=== PATIENT | male | born 1955 | race Caucasian/White ===

== ENCOUNTER 2022-04-28 13:19 | Outpatient (REF) | payer MEDICARE, OTHER, SELFPAY ==
--- NOTE | ~2022-04-28 | US_ITS ---
EXAMINATION: US RETROPERITONEAL LIMITED (AORTA) CLINICAL INFORMATION: Nicotine dependence, unspecified, uncomplicated. COMPARISON: None TECHNIQUE: Valentine-scale, color Doppler and spectral Doppler evaluation of the abdominal aorta. FINDINGS: The measurements of the aorta in maximum AP and transverse dimensions respectively are as follows: Proximal: 2.9 x 3.2 cm. Mid: 2.0 x 2.3 cm. Distal: 2.1 x 2.0 cm. PSV: 84 cm/s. The measurements of the common iliac arteries in maximum AP and TRV dimensions are as follows: Right Common Iliac Artery: 1.1 x 1.2 cm. Left Common Iliac Artery: 1.2 x 1.1 cm. US/US abdominal aortic aneurysm IMPRESSION: Calcified plaque present within the infrarenal abdominal aorta and iliac vessels. There is mild dilatation of the proximal abdominal aorta. No significant aneurysm appreciated.
== END 2022-04-28 13:20 | disposition home or self-care (01) ==
LOC: HO.US 13:19
PROVIDERS: Visit Provider Internal Medicine
DX: Z13.6 Encounter for screening for cardiovascular disorders (principal); F17.200 Nicotine dependence, unspecified, uncomplicated
CPT/HCPCS: 76706

== ENCOUNTER 2022-11-13 14:17 | Outpatient (REF) | payer MEDICARE, OTHER, SELFPAY ==
[2022-11-13 19:57] LABS: Alanine Aminotransferase 13 U/L (0-40); Albumin Level 4.1 g/dL (3.5-5.0); Alkaline Phosphatase 68 U/L (39-117); Anion Gap 14 (12-20); Aspartate Amino Transferase 14 U/L (5-37); Bilirubin Total 0.5 mg/dL (0.0-1.0); Blood Urea Nitrogen 9 mg/dL (9-16); Calcium 10.2 mg/dL (8.4-10.2); Carbon Dioxide 25 mmol/L (22-29); Chloride 104 mmol/L (96-108); Cholesterol 97 mg/dL; Estimated Glomerular Filt Rate > 60; Glucose Fasting 86 mg/dL (60-99); HDL Cholesterol 30 mg/dL; LDL Cholesterol Calculated 43 mg/dl; Potassium 3.9 mmol/L (3.3-5.1); Sodium 139 mmol/L (135-145); Triglycerides 122 mg/dL
[2022-11-13 19:59] LABS: Creatinine Urine 106.62 mg/dL; Microalbum/Creatinine Ratio Ur 353.5 ug/mg cr
== END 2022-11-13 14:18 | disposition home or self-care (01) ==
LOC: HO.LAB 14:17
PROVIDERS: PCP Internal Medicine; Visit Provider Internal Medicine
DX: E11.9 Type 2 diabetes mellitus without complications (principal); E78.5 Hyperlipidemia, unspecified
CPT/HCPCS: 36415; 80053; 80061; 82043

== ENCOUNTER 2023-03-15 13:30 | Outpatient (REF) | payer MEDICARE, OTHER, SELFPAY ==
[2023-03-15 14:31] LABS: Alanine Aminotransferase 17 U/L (0-40); Albumin Level 4.4 g/dL (3.5-5.0); Alkaline Phosphatase 91 U/L (39-117); Anion Gap 13 (12-20); Aspartate Amino Transferase 19 U/L (5-37); Bilirubin Total 0.4 mg/dL (0.0-1.0); Blood Urea Nitrogen 13 mg/dL (9-16); Calcium 10.3 mg/dL (8.4-10.2); Carbon Dioxide 26 mmol/L (22-29); Chloride 104 mmol/L (96-108); Cholesterol 128 mg/dL (<200); Estimated Glomerular Filt Rate > 60; Glucose Fasting 104 mg/dL (60-99); HDL Cholesterol 31 mg/dL (>40); LDL Cholesterol Calculated 65 mg/dL (<100); Potassium 4.7 mmol/L (3.3-5.1); Sodium 138 mmol/L (135-145); Total Protein 7.6 g/dL (6.5-8.0); Triglycerides 164 mg/dL (<150)
[2023-03-15 14:51] LABS: Creatinine Urine 90.41 mg/dL; Microalbum/Creatinine Ratio Ur 257.7 ug/mg cr (<30)
== END 2023-03-15 13:31 | disposition home or self-care (01) ==
LOC: HO.LAB 13:30
PROVIDERS: PCP Internal Medicine; Visit Provider Internal Medicine
DX: E11.9 Type 2 diabetes mellitus without complications (principal); E78.5 Hyperlipidemia, unspecified
CPT/HCPCS: 36415; 80053; 80061; 82043; 82570

== ENCOUNTER 2023-07-12 13:54 | Outpatient (AMB) | payer MEDICARE, OTHER, SELFPAY ==
[2023-07-12 13:58] VITALS: BP 136/72; BMI 31.9
--- NOTE | 2023-07-12 13:58 | A.OFFPC_ITS ---
Vital Signs 07/12/23 13:58 Height 5 ft 8 in Weight 210 lb BMI 31.9 BP 136/72 Blood Pressure Location Lt brachial Position Sitting Intake Visit Reasons: dm Intake Note: Patient here for a follow up DM Sys Dir Required: No Accompanied by: Self / Same As Patient Allergies No Known Allergies Allergy (Verified 07/12/23 14:25) Medication List - Last Reconciled 07/12/23 by Aranza Saxena MD atenolol 50 mg PO DAILY atorvastatin 80 mg PO DAILY 90 days glyburide 5 mg PO BID 30 days linagliptin (Tradjenta) 5 mg PO DAILY 90 days lisinopril 30 mg PO DAILY metformin 1,000 mg PO BID 90 days paroxetine HCl 20 mg PO DAILY Tobacco use date assessed: 07/12/23 Fall risk assessment: No Falls in past year Last assessed Fall Risk: 07/12/23 Dental Screening Dental Screen Date: 07/12/23 Did you have a dental visit in the last 12 months?: No Did you have a dental problem in the last 6 months where you did not have access to dental care?: No Was dental information given to patient?: Patient declined HPI HPI Comments History of Present Illness Details This is a 68-year-old male with diabetes mellitus type 2, hypertension, hyperlipidemia and mild major depression that comes today for follow-up on his conditions. A1c very close to goal. Blood pressure stable. Lipid panel will be order and his LDL goal should be less than 70. Depression somewhat stable with paroxetine and see psychiatry. Last microalbumin was elevated and this will be repeated. No chest pain or shortness of breath. PFSH Surgical History H/O colonoscopy Family History Mother No problems noted. Father Substance use disorder Alcoholism Social History Housing: House Alcohol intake: former Patient Tobacco Use Status: Current everyday Tobacco user Tobacco use type: Cigarette Cigarettes Per Day: 6 e-Cigarette/Vaping Use: Never Used Second Hand Smoke Exposure: No service: Yes Current occupational status: retired Cognitive needs: No Hearing needs: No Vision needs: Yes Questionnaire PHQ-9 Over the last 2 weeks, how often have you been bothered by any of the following problems? 1. Little interest or pleasure in doing things: not at all 2. Feeling down, depressed, or hopeless: several days 3. Trouble falling or staying asleep, or sleeping too much: nearly every day 4. Feeling tired or having little energy: not at all 5. Poor appetite or overeating: several days 6. Feeling bad about yourself - or that you are a failure or have let yourself or your family down: not at all 7. Trouble concentrating on things, such as reading the newspaper or watching television: nearly every day 8. Moving or speaking so slowly that other people could have noticed. Or the opposite - being so fidgety or restless that you have been moving around a lot more than usual: several days 9. Thoughts that you would be better off or of hurting yourself in some way: not at all Total score: 9 Depression Screening Interpretation: Positive Depression Screening Follow-up: Existing condition Depression Screening Done: Yes 23177 - PHQ-9 Billing: Yes Source: Developed by Drs. Adam Carter, Deb Farris, Cristian Guerrero and colleagues, with an educational aurora from [employer]. Thrive Questionnaire Date Thrive assessed: 07/12/23 I am a: Patient What is your living situation today?: I have a steady place to live Within the past 12 months, did the food you bought not last and you didn't have the money to get more?: Never true Within the past 12 months, did you worry whether your food would run out before you got money to buy more?: Never true Do you have trouble paying for medicines?: No Do you have trouble getting transportation to medical appointments?: No Do you have trouble paying your heating and electricity bill?: No Do you have trouble taking care of your child, family member or friend?: No Do you have trouble with day-to-day activities such as bathing, preparing meals, shopping, managing finances, etc.?: No Are you currently unemployed and looking for a job?: No Are you interested in more education?: No Please select the resources that you would like help with: None Currently or been in a relationship where the following occur: no concerns reported THRIVE Score: 0 AUDIT C Alcohol Use Questionnaire (AUDIT-C) 1. How often do you have a drink containing alcohol?: Never Total Score: 0 TERRELL-7 AMB Questionnaire TERRELL-7 Date TERRELL - 7 assessed: 07/12/23 Feeling nervous, anxious, or on edge: 2 = More than half the days Not being able to stop or control worryin = More than half the days Worrying too much about different things: 3 = Nearly every day Trouble relaxin = Several days Being so restless that it is hard to sit still: 2 = More than half the days Becoming easily annoyed or irritable: 2 = More than half the days Feeling afraid as if something awful might happen: 1 = Several days Total TERRELL-7 score (0-4 normal; 5-9 mild; 10-14 moderate; 15-21 severe): 13 Source: Developed by Drs. Adam Carter, Deb Farris, Cristian Guerrero and colleagues, with an educational aurora from [employer]. TERRELL-7 Assessment Billing TERRELL-7 Assessment Tool: TERRELL-7 Assessment 89084 Review of Systems Const All systems reviewed & are unremarkable except as noted in HPI and below Eyes Reports no additional complaints, Denies change in vision and Denies other visual disturbances Card Denies chest pain at rest, Denies chest pain with activity, Denies edema, Denies irregular heart rhythm, Denies claudication, Denies dyspnea, Denies dyspnea on exertion, Denies orthopnea, Denies paroxysmal nocturnal dyspnea and Denies slow heart rate Resp Denies cough, Denies dyspnea and Denies dyspnea on exertion GI Denies abdominal pain, Denies change in bowel habits, Denies excessive flatus, Denies nausea and Denies vomiting Denies urinary hesitancy, Denies urinary incontinence and Denies urinary urgency Physical exam (Primary Care) Vital Signs: Last Vital Signs BP 136/72 07/12/23 13:58 BMI result Body Mass Index 31.9 Tobacco/Smoking Status: Tobacco use Status Tobacco use date assessed 07/12/23 07/12/23 14:07 Patient Tobacco Use Status Current everyday Tobacco 07/12/23 14:07 Tobacco use type Cigarette 07/12/23 14:07 e-Cigarette/Vaping Use Never Used 07/12/23 14:07 PHQ-9: PHQ-9 Score PHQ-9: Total score 9 07/12/23 14:07 Depression Screening Interpretation: Positive Depression Screening Follow-up: Existing condition Thrive Assessment: Date of Thrive Assessment Date Thrive assessed 07/12/23 07/12/23 14:07 Currently or been in a relationship where the following occur: no concerns reported Eyes General: appearance normal, both eyes and all related structures Eyelids: Yes eyelids normal Conjunctivae: conjunctivae normal Neck Neck: Yes normal visual inspection and Yes supple Resp Effort & Inspection: normal respiratory effort Auscultation: clear to auscultation bilaterally Cardio Jugular venous distension: no JVD Rate: regular rate Rhythm: regular rhythm Heart sounds: S1 normal heart sound present and S2 normal heart sound present Extrem General: Yes full ROM Results AMB Hemoglobin A1c AMB Hemoglobin A1c 7.2 % Last Edit by DANIELA West on 07/12/23 14:0 9 Results Reviewed Results Reviewed: Laboratory Last Values Hgb A1c (Clinic) 7.2 % (4.0-6.0) H 07/12/23 13:57 Assessment and Plan Assessment & Plan (1) Diabetes mellitus: Comment: eye care with Dr. Barnes in 06/25/2021 Code(s): E11.9 - Type 2 diabetes mellitus without complications Plan: Continue metformin, Tradjenta and liver eye. A1c goal is equal or less than 7%. (2) Essential (primary) hypertension: Code(s): I10 - Essential (primary) hypertension Plan: Continue lisinopril. Blood pressure goal is equal or less than 130/80. (3) Hyperlipidemia LDL goal <70: Code(s): E78.5 - Hyperlipidemia, unspecified Plan: Continue statins. LDL goal less than 70. (4) Mild major depression: Code(s): F32.0 - Major depressive disorder, single episode, mild Plan: Continue paroxetine. Follow-up with psychiatry. Orders: Orders Microalbumin, Random (w Creat) Today E11.9 - Type 2 diabetes mellitus without complications Vitamin D 25-OH Total Today E55.9 - Vitamin D deficiency, unspecified Comprehensive [place]. Panel Fast Today E11.9 - Type 2 diabetes mellitus without complications AMB Hemoglobin A1c Today E11.9 - Type 2 diabetes mellitus without complications Lipid Panel Today E78.5 - Hyperlipidemia, unspecified Coding Level of Care Code Est Pt Level 4 (99761) Diagnoses Diabetes mellitus E11.9 Essential (primary) hypertension I10 Hyperlipidemia LDL goal <70 E78.5 Mild major depression F32.0 Additional Codes TERRELL-7 Assessment Billing - TERRELL-7 Assessment Tool: TERRELL-7 Assessment 43516 ([id number]) Time Spent (min) 23
== END 2023-07-12 14:35 | disposition home or self-care (01) ==
PROVIDERS: PCP Internal Medicine; Visit Provider Internal Medicine
DX: E11.69 Type 2 diabetes mellitus with other specified complication (principal); F32.0 Major depressive disorder, single episode, mild; I10 Essential (primary) hypertension; E78.5 Hyperlipidemia, unspecified
CPT/HCPCS: 83036; 99214

== ENCOUNTER 2023-08-25 16:23 | Emergency (ER) | payer OTHER, SELFPAY ==
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
--- NOTE | ~2023-08-25 | CT_ITS ---
EXAMINATION: CT HEAD WITHOUT CONTRAST CT CERVICAL SPINE WITHOUT CONTRAST CLINICAL INFORMATION: Head injury. Neck trauma. COMPARISON: None available. TECHNIQUE: Contiguous axial imaging was performed from the skull base to vertex without intravenous administration of contrast. Contiguous axial imaging was performed from the upper chest through the skull base without intravenous administration of contrast. Coronal and sagittal reformats were obtained at the acquisition workstation. This CT examination was performed using dose optimization techniques as appropriate, variously including the following: *Automated exposure control. *Adjustment of mA and/or kV according to patient size (this includes techniques or standardized protocols for targeted exams where dose is matched to indication/reason for exam; i.e. extremities or head). *Use of iterative reconstruction technique. DLP: 1575 mGy-cm FINDINGS: Head: There is no evidence of acute intracranial hemorrhage or edematous territorial infarction. Valentine-white matter differentiation is preserved. A few foci of hypoattenuation in the periventricular and deep white matter are consistent with mild microangiopathy. The ventricles are normal in morphology and size. No evidence for obstructive hydrocephalus. No abnormal mass effect or midline shift. No extra-axial fluid collections. Calcific atherosclerotic disease of the intracranial internal carotid and vertebral arteries. No hyperdense vessel sign. No acute soft tissue or osseous abnormalities. Mild mucosal thickening of the paranasal sinuses. The mastoid air cells and middle ear cavities are clear. Cervical Spine: The atlantooccipital and atlantoaxial articulations remain well aligned. Straightening of the normal cervical lordosis. Otherwise, there is anatomic alignment of the vertebral bodies and posterior elements. Congenital nonunion of the posterior arch of C1. No evidence of acute fracture or subluxation. The vertebral body heights are maintained. Moderate degenerative disc disease at C3-C4 and C5-C6. Mild degenerative disc disease at all additional levels. Facet and uncovertebral joint arthropathy leads to osseous encroachment on the neural foramina from C3-C7. There is no prevertebral soft tissue swelling. The thyroid gland and remaining cervical soft tissues are within normal limits. The lung apices demonstrate no abnormalities. CT/CT cervical spine wo IV con IMPRESSION: 1. No evidence of acute intracranial hemorrhage or edematous territorial infarction. Mild underlying microangiopathy. 2. No evidence of acute fracture or traumatic subluxation of the cervical spine. Moderate multilevel degenerative spondyloarthropathy of the cervical spine.
[2023-08-25 16:31] VITALS: BP 180/100; PULSE 85; O2SAT 98
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
[2023-08-25 17:37] VITALS: BP 163/76; PULSE 87; RESP 16; TEMP 36.8; O2SAT 97; BMI 35.9
[2023-08-25 18:10] LABS: MANUAL DIFF FLAG NO
[2023-08-25 18:11] LABS: Basophils Absolute Auto 0.1 X10*3/uL (0.0-0.2); Basophils Percent Auto 0.5 % (0-2); Eosinophils Absolute Auto 0.2 X10*3/uL (0.0-0.4); Eosinophils Percent Auto 1.5 % (0-4); Hematocrit 41.5 % (42.0-52.0); Hemoglobin 14.3 g/dl (14.0-18.0); Imm Gran Abs Auto 0.07 X10*3/uL (0.00-0.03); Imm Gran Pct Auto 0.6 % (0.0-0.4); Lymphocytes Absolute Auto 2.4 X10*3/uL (1.2-4.9); Lymphocytes Percent Auto 18.7 % (20-40); Mean Corpuscular HGB Conc 34.5 g/dl (31.0-36.0); Mean Corpuscular Hemoglobin 32.6 pg (27.0-33.0); Mean Corpuscular Volume 94.5 fL (80.0-98.0); Monocytes Absolute Auto 1.1 X10*3/uL (0.1-1.2); Monocytes Percent Auto 8.5 % (2-11); Neutrophils Absolute Auto 8.9 x10*3/uL (2.0-8.3); Neutrophils Percent Auto 70.2 % (45-73); Platelet Count 321 X10*3/uL (160-400); Red Blood Count 4.39 X10*6/uL (4.60-5.80); Red Cell Distribution Width 13.1 % (11.0-16.0); White Blood Count 12.7 X10*3/uL (4.8-10.8)
[2023-08-25] MEDS: ondansetron HCL 4 MG/2 ML VIAL IVPUSH (18:14)
[2023-08-25] MEDS: Morphine Sulfate 4 MG/ML CARTRIDGE IVPUSH (18:14)
--- NOTE | 2023-08-25 18:18 | PC.NURSE ---
this nurse is assisting primary nurse jose alejandro Roque medicated per order
[2023-08-25 18:58] LABS: Alanine Aminotransferase 16 U/L (0-40); Albumin Level 3.6 g/dL (3.5-5.0); Alkaline Phosphatase 68 U/L (39-117); Anion Gap 9 (12-20); Aspartate Amino Transferase 13 U/L (5-37); Bilirubin Direct 0.2 mg/dL (0.0-0.5); Bilirubin Total 0.4 mg/dL (0.0-1.0); Blood Urea Nitrogen 11 mg/dL (9-16); Calcium 9.4 mg/dL (8.4-10.2); Carbon Dioxide 28 mmol/L (22-29); Chloride 108 mmol/L (96-108); Creatinine Clr Calc Pharmacy 143.2; Estimated Glomerular Filt Rate > 60; Glucose Random 114 mg/dL (60-115); Lipase 74 U/L (8-78); Magnesium 1.7 mg/dL (1.6-2.6); Potassium 4.2 mmol/L (3.3-5.1); Sodium 141 mmol/L (135-145); Total Protein 6.3 g/dL (6.5-8.0)
--- NOTE | 2023-08-25 19:36 | PC.NURSE ---
this rn assumed care of pt. pt resting in stretcher, respirations even and unlabored. pt has c-collar in place, awaiting CT scan. pt reports pain has improved with previous dose of pain medication.
[2023-08-25 19:38] VITALS: BP 131/79; PULSE 89; RESP 17; TEMP 36.8; O2SAT 96
[2023-08-25] MEDS: iohexoL 350 MG/ML 100 ML INFUS..BTL 85 ML IV (20:16)
[2023-08-25 22:50] VITALS: BP 101/49; PULSE 84; RESP 16; TEMP 37.1; O2SAT 98
[2023-08-26 00:33] VITALS: BP 101/49; PULSE 84; RESP 16; TEMP 37.1; O2SAT 98
== END 2023-08-26 00:34 | disposition home or self-care (01) ==
PROVIDERS: Emergency Medicine; Emergency Provider Emergency Medicine; PCP Internal Medicine
DX: S09.90XA Unspecified injury of head, initial encounter (principal); M54.2 Cervicalgia; I10 Essential (primary) hypertension; E11.9 Type 2 diabetes mellitus without complications; V89.2XXA Person injured in unspecified motor-vehicle accident, traffic, initial encounter; Y93.9 Activity, unspecified; Y92.410 Unspecified street and highway as the place of occurrence of the external cause; Y99.9 Unspecified external cause status
CPT/HCPCS: 36415; 70450; 71260; 72125; 74177; 80048; 80076; 83690; 83735; 85025; 96374; 96375; 99284; J2270; J2405; Q9967

== ENCOUNTER 2023-11-15 13:34 | Outpatient (AMB) | payer MEDICARE, OTHER, SELFPAY ==
[2023-11-15 13:38] VITALS: BP 130/78; BMI 28.7
--- NOTE | 2023-11-15 13:38 | A.OFFPC_ITS ---
Vital Signs 11/15/23 13:38 Height 6 ft Weight 212 lb BMI 28.7 BP 130/78 Blood Pressure Location Lt brachial Position Sitting Intake Visit Reasons: dm Intake Note: Patient here a follow up DM Nurse Practitioner Home Assessments Required: No Accompanied by: Self / Same As Patient Allergies No Known Allergies Allergy (Verified 11/15/23 13:49) Medication List - Last Reconciled 11/15/23 by Aranza Saxena MD atenolol 50 mg PO DAILY atorvastatin 80 mg PO DAILY 90 days glyburide 5 mg PO BID 30 days linagliptin (Tradjenta) 5 mg PO DAILY 90 days lisinopril 30 mg PO DAILY metformin 1,000 mg PO BID 90 days paroxetine HCl 20 mg PO DAILY Tobacco use date assessed: 07/12/23 Fall risk assessment: No Falls in past year Last assessed Fall Risk: 11/15/23 Dental Screening Dental Screen Date: 07/12/23 HPI HPI Comments History of Present Illness Details This is a 68-year-old male with hypertension, diabetes mellitus type 2, mild major depression and hyperlipidemia that comes today for follow-up on his conditions. Pressure stable. A1c has improved but I will change glyburide to pioglitazone. Depression stable with paroxetine. Lipid panel will be order and his LDL goal should be less than 70. Has microalbuminuria and will be referred to nephrology. Went to ER in August and had CT scan of the chest and CT scan of abdomen and pelvis showing tiny pulmonary nodules, COPD changes, benign left adrenal adenoma and BPH. Denies any bowel or bladder complaint. No chest pain or shortness on breath. I will still refer him to pulmonology for his COPD. He has still a smoker and was advised to quit. As per patient he has intentionally lost weight. [facility] Medical History (Updated 11/15/23 @ 14:09 by Aranza Saxena MD) Mild major depression Hyperlipidemia LDL goal <70 Essential (primary) hypertension Diabetes mellitus Class 1 obesity with body mass index (BMI) of 32.0 to 32.9 in adult Surgical History H/O colonoscopy Family History Mother No problems noted. Father Substance use disorder Alcoholism Social History Housing: House Alcohol intake: former Patient Tobacco Use Status: Current everyday Tobacco user Tobacco use type: Cigarette Cigarettes Per Day: 6 e-Cigarette/Vaping Use: Never Used Second Hand Smoke Exposure: No service: Yes Current occupational status: retired Cognitive needs: No Hearing needs: No Vision needs: Yes Questionnaire Thrive Questionnaire Date Thrive assessed: 07/12/23 TERRELL-7 AMB Questionnaire TERRELL-7 Date TERRELL - 7 assessed: 07/12/23 Source: Developed by Drs. Adam Carter, Deb Farris, Cristian Guerrero and colleagues, with an educational aurora from [employer]. Review of Systems Const All systems reviewed & are unremarkable except as noted in HPI and below Card Denies chest pain at rest, Denies chest pain with activity, Denies edema, Denies irregular heart rhythm, Denies claudication, Denies dyspnea, Denies dyspnea on exertion, Denies orthopnea, Denies paroxysmal nocturnal dyspnea and Denies slow heart rate Resp Denies cough, Denies dyspnea and Denies dyspnea on exertion Physical exam (Primary Care) Vital Signs: Last Vital Signs BP 130/78 11/15/23 13:38 BMI result Body Mass Index 28.7 Tobacco/Smoking Status: Tobacco use Status Tobacco use date assessed 07/12/23 11/15/23 13:43 Patient Tobacco Use Status Current everyday Tobacco 11/15/23 13:43 Tobacco use type Cigarette 11/15/23 13:43 e-Cigarette/Vaping Use Never Used 11/15/23 13:43 Are you ready to quit: No Tobacco cessation counseling provided: Yes Items discussed: [employer] Relapse Prevention: discussed the importance of a supportive environment, discussed negative mood or depression after quitting, weight gain after smoking is common and discussed dietary, exercise and/or lifestyle changes Number of minutes spent counselin CPT code: 60896 - 4-10 Minutes Thrive Assessment: Date of Thrive Assessment Date Thrive assessed 07/12/23 11/15/23 13:43 Resp Effort & Inspection: normal respiratory effort Auscultation: clear to auscultation bilaterally Cardio Jugular venous distension: no JVD Rate: regular rate Rhythm: regular rhythm Heart sounds: S1 normal heart sound present and S2 normal heart sound present Neuro General: no focal motor deficits Extrem General: Yes full ROM Psych Appearance: grossly normal Results AMB Hemoglobin A1c AMB Hemoglobin A1c 7.1 % Last Edit by DANIELA West on 11/15/23 13:4 9 Assessment and Plan Assessment & Plan (1) Diabetes mellitus: Comment: eye care with Dr. Barnes in 06/25/2021 Code(s): E11.9 - Type 2 diabetes mellitus without complications Qualifiers: Diabetes mellitus type: type 2 Diabetes mellitus commercial lending assistant insulin use: without commercial lending assistant use Diabetes mellitus complication status: with hyperglycemia Qualified Code(s): E11.65 - Type 2 diabetes mellitus with hyperglycemia Plan: Continue metformin. Continue Tradjenta. Discontinue glyburide. Start Actos. A1c goal is equal or less than 7%. (2) Mild major depression: Code(s): F32.0 - Major depressive disorder, single episode, mild Plan: Continue paroxetine. (3) Hyperlipidemia LDL goal <70: Code(s): E78.5 - Hyperlipidemia, unspecified Plan: Continue statins. Repeat lipid panel. LDL goal is less than 70. (4) Essential (primary) hypertension: Code(s): I10 - Essential (primary) hypertension Plan: Continue lisinopril. Blood pressure goal is equal or less than 130/80. (5) COPD (chronic obstructive pulmonary disease): Code(s): J44.9 - Chronic obstructive pulmonary disease, unspecified Qualifiers: COPD type: unspecified COPD Qualified Code(s): J44.9 - Chronic obstructive pulmonary disease, unspecified Plan: Referred to pulmonology. (6) Microalbuminuria: Code(s): R80.9 - Proteinuria, unspecified Plan: Referred to nephrology. Orders: Orders Lipid Panel Today E11.9 - Type 2 diabetes mellitus without complications, E78.5 - Hyperlipidemia, unspecified Complete Blood Count Auto Diff Today D35.00 - Benign neoplasm of unspecified adrenal gland AMB Hemoglobin A1c Today E11.9 - Type 2 diabetes mellitus without complications Microalbumin, Random (w Creat) Today E11.9 - Type 2 diabetes mellitus without complications Comprehensive [place]. Panel Fast Today E11.9 - Type 2 diabetes mellitus without complications Referrals Pulmonology Referral J44.9 - Chronic obstructive pulmonary disease, unspecified Nephrology Referral R80.9 - Proteinuria, unspecified Medications: New pioglitazone 15 mg PO DAILY 90 days 90 tabs 1RF E11.9 - Type 2 diabetes mellitus without complications Changed From paroxetine HCl 20 mg PO DAILY F32.0 - Major depressive disorder, single episode, mild To paroxetine HCl 20 mg PO DAILY 90 days 90 tabs 1RF F32.0 - Major depressive disorder, single episode, mild Discontinued glyburide Discontinued Reason: Order 5 mg PO BID 30 days 180 tabs 1RF Coding Level of Care Code Est Pt Level 4 (05952) Complex EM visit Add On G2211 Diagnoses Type 2 diabetes mellitus with hyperglycemia, without long-term current use of insulin E11.65 Diabetes mellitus type: type 2 Diabetes mellitus fdc insulin use: without fdc use Diabetes mellitus complication status: with hyperglycemia Mild major depression F32.0 Hyperlipidemia LDL goal <70 E78.5 Essential (primary) hypertension I10 Chronic obstructive pulmonary disease, unspecified COPD type J44.9 COPD type: unspecified COPD Microalbuminuria R80.9 Additional Codes Vital Signs *Quality* - CPT code: 25137 - 4-10 Minutes ([id number]) Time Spent (min) 25
== END 2023-11-15 14:03 | disposition home or self-care (01) ==
PROVIDERS: PCP Internal Medicine; Visit Provider Internal Medicine
DX: E11.65 Type 2 diabetes mellitus with hyperglycemia (principal); F32.0 Major depressive disorder, single episode, mild; J44.9 Chronic obstructive pulmonary disease, unspecified; E11.69 Type 2 diabetes mellitus with other specified complication; E78.5 Hyperlipidemia, unspecified; I10 Essential (primary) hypertension; R80.9 Proteinuria, unspecified
CPT/HCPCS: 83036; 99214; G2211

== ENCOUNTER 2023-11-15 14:19 | Outpatient (REF) | payer MEDICARE, OTHER, SELFPAY ==
[2023-11-15 14:59] LABS: MANUAL DIFF FLAG NO
[2023-11-15 15:39] LABS: Basophils Percent Auto 0.3 % (0-2); Eosinophils Absolute Auto 0.2 X10*3/uL (0.0-0.4); Eosinophils Percent Auto 1.6 % (0-4); Hematocrit 44.9 % (42.0-52.0); Hemoglobin 15.7 g/dl (14.0-18.0); Imm Gran Abs Auto 0.09 X10*3/uL (0.00-0.03); Imm Gran Pct Auto 0.8 % (0.0-0.4); Lymphocytes Percent Auto 24.6 % (20-40); Mean Corpuscular Hemoglobin 33.2 pg (27.0-33.0); Mean Corpuscular Volume 94.9 fL (80.0-98.0); Mean Platelet Volume 9.3 fL (9.4-12.4); Monocytes Absolute Auto 1.1 X10*3/uL (0.1-1.2); Monocytes Percent Auto 8.8 % (2-11); Neutrophils Absolute Auto 7.7 x10*3/uL (2.0-8.3); Neutrophils Percent Auto 63.9 % (45-73); Platelet Count 388 X10*3/uL (160-400); Red Blood Count 4.73 X10*6/uL (4.60-5.80); Red Cell Distribution Width 13.3 % (11.0-16.0)
[2023-11-15 16:23] LABS: Creatinine Urine 165.19 mg/dL
[2023-11-15 16:29] LABS: Alanine Aminotransferase 18 U/L (0-40); Albumin Level 4.3 g/dL (3.5-5.0); Alkaline Phosphatase 76 U/L (39-117); Anion Gap 12 (12-20); Aspartate Amino Transferase 14 U/L (5-37); Bilirubin Total 0.5 mg/dL (0.0-1.0); Blood Urea Nitrogen 14 mg/dL (9-16); Calcium 10.4 mg/dL (8.4-10.2); Carbon Dioxide 23 mmol/L (22-29); Chloride 107 mmol/L (96-108); Cholesterol 118 mg/dL (<200); Estimated Glomerular Filt Rate > 60; Glucose Fasting 83 mg/dL (60-99); HDL Cholesterol 33 mg/dL (>40); LDL Cholesterol Calculated 51 mg/dL (<100); Potassium 4.2 mmol/L (3.3-5.1); Sodium 138 mmol/L (135-145); Total Protein 7.1 g/dL (6.5-8.0); Triglycerides 174 mg/dL (<150)
[2023-11-15 16:37] LABS: Microalbum/Creatinine Ratio Ur 496.3 ug/mg cr (<30)
[2023-11-15 16:46] LABS: Vitamin D 25-OH Total 20.6 ng/mL (>30)
== END 2023-11-15 14:20 | disposition home or self-care (01) ==
LOC: HO.LAB 14:19
PROVIDERS: PCP Internal Medicine; Visit Provider Internal Medicine
DX: E11.9 Type 2 diabetes mellitus without complications (principal); E78.5 Hyperlipidemia, unspecified; D35.00 Benign neoplasm of unspecified adrenal gland; E55.9 Vitamin D deficiency, unspecified
CPT/HCPCS: 36415; 80053; 80061; 82043; 82306; 82570; 85025

== ENCOUNTER 2023-11-23 13:16 | Outpatient (AMB) | payer MEDICARE, OTHER, SELFPAY ==
[2023-11-23 13:30] VITALS: BP 134/80; PULSE 85; O2SAT 97; BMI 29.0
--- NOTE | 2023-11-23 13:30 | HO.NEPHOV ---
Vital Signs 11/23/23 13:30 Height 6 ft Weight 214 lb BMI 29.0 BP 134/80 Blood Pressure Location Rt brachial Position Sitting Pulse 85 Pulse Source Pulse Oximeter Pulse Oximetry (%) 97 Oxygen Delivery Method Room Air Intake Visit Reasons: Proteinuria/ Conf Meat Hanger Required: No Accompanied by: Self / Same As Patient Allergies No Known Allergies Allergy (Verified 11/23/23 13:53) Medication List - Last Reconciled 11/23/23 by Manuel Powers MD atenolol 50 mg PO DAILY atorvastatin 80 mg PO DAILY 90 days cholecalciferol (vitamin D3) 25 mcg PO DAILY 90 days glyburide 5 mg PO BID linagliptin (Tradjenta) 5 mg PO DAILY 90 days lisinopril 30 mg PO DAILY metformin 1,000 mg PO BID 90 days paroxetine HCl 20 mg PO DAILY 90 days pioglitazone 15 mg PO DAILY 90 days HPI Comments Details: . Juvencio is a 68-year-old man with a history of diabetes mellitus diagnosed in 1991. He has a history of hypertension and obesity as well. He was found to have microalbuminuria and hence this referral. Recent serum creatinine was 0.8 mg/dL. Of note he tells me that his blood sugar has been well controlled. His blood pressure is under control as well. He is on ROSANGELA inhibitors. History of left adrenal adenoma measuring 3 cm; CT scan 09/11/2023; consistent with benign adenoma [facility] Medical History (Updated 11/15/23 @ 14:09 by Aranza Saxena MD) Mild major depression Hyperlipidemia LDL goal <70 Essential (primary) hypertension Diabetes mellitus Class 1 obesity with body mass index (BMI) of 32.0 to 32.9 in adult Surgical History H/O colonoscopy Family History Mother No problems noted. Father Substance use disorder Alcoholism Social History Housing: House Alcohol intake: former Patient Tobacco Use Status: Current everyday Tobacco user Tobacco use type: Cigarette Cigarettes Per Day: 6 e-Cigarette/Vaping Use: Never Used Second Hand Smoke Exposure: No service: Yes Current occupational status: retired Cognitive needs: No Hearing needs: No Vision needs: Yes Review of Systems Const Reports as per HPI, Denies anorexia, Denies fatigue, Denies fever(s) and Denies headache(s) Eyes Denies blurry vision ENT Denies headache(s) Card Denies chest pain, Denies pedal edema and Denies dyspnea Resp Denies cough, Denies hemoptysis and Denies dyspnea GI Denies diarrhea, Denies nausea and Denies vomiting Denies hematuria, Denies urinary frequency and Denies urinary hesitancy Neuro Denies confusion, Denies headache(s) and Denies focal weakness Psych Denies confusion Endo Denies cold intolerance, Denies fatigue and Denies polyuria Physical Exam Vital Signs: Last Vital Signs Pulse 85 11/23/23 13:30 BP 134/80 11/23/23 13:30 Pulse Ox 97 11/23/23 13:30 Oxygen Delivery Method Room Air 11/23/23 13:30 BMI result Body Mass Index 29.0 Const General: No confusion Orientation/consciousness: No confusion Eyes General: appearance normal, both eyes and all related structures Visual Morfin: normal visual morfin by confrontation Neck Neck: Yes supple and Yes no JVD Resp Effort & Inspection: normal respiratory effort and respiratory effort not decreased Auscultation: rhonchi Cardio Palpation: no palpable S3 and no palpable S4 Heart sounds: no rubs GI Inspection: Yes normal to inspection Palpation (GI): Soft to palpation Percussion: Yes normal to percussion Auscultation: normal bowel sounds General: Yes no CVA tenderness Back/Spine/Pelvis Back: no CVA tenderness Skin General skin exam: no petechiae and no purpura Neuro General: No confusion Extrem General: No clubbing and No edema Results Reviewed Results Reviewed: August 2023: ADRENAL GLANDS: There is a 3 cm left adrenal mass present that measures water density even after IV contrast consistent with a benign adenoma. The right adrenal gland is normal. KIDNEYS AND URETERS: The kidneys are normal in size, shape, and attenuation. No hydronephrosis, hydroureter, or calculi. 2 Bosniak class I renal cysts are noted in the left kidney which requires no additional imaging or follow up. No solid renal masses are seen. Nephrology Results: Hgb 15.7 g/dl (14.0-18.0) 11/15/23 WBC 12.0 X10*3/uL (4.8-10.8) H 2424 Plt Count 388 X10*3/uL (160-400) 24 Sodium 138 mmol/L (135-145) 24 Potassium 4.2 mmol/L (3.3-5.1) 24 Chloride 107 mmol/L (96-108) 24 Carbon Dioxide 23 mmol/L (22-29) 24 BUN 14 mg/dL (9-16) 24 Creatinine 0.75 mg/dL (0.5-1.4) 24 Calcium 10.4 mg/dL (8.4-10.2) H 11/15/23 Urine Creatinine 165.19 mg/dL 11/15/23 Assessment & Plan Assessment & Plan (1) Diabetes mellitus: Comment: eye care with Dr. Barnes in 06/25/2021 Code(s): E11.9 - Type 2 diabetes mellitus without complications Category: Medical Qualifiers: Diabetes mellitus type: type 2 Diabetes mellitus longterm insulin use: without longterm use Diabetes mellitus complication status: with hyperglycemia Qualified Code(s): E11.65 - Type 2 diabetes mellitus with hyperglycemia (2) Microalbuminuria: Code(s): R80.9 - Proteinuria, unspecified Category: Medical (3) Adrenal adenoma: Code(s): D35.00 - Benign neoplasm of unspecified adrenal gland Category: Medical (4) Smoker: Code(s): F17.200 - Nicotine dependence, unspecified, uncomplicated Category: Social Hx (5) COPD (chronic obstructive pulmonary disease): Code(s): J44.9 - Chronic obstructive pulmonary disease, unspecified Category: Medical Qualifiers: COPD type: unspecified COPD Qualified Code(s): J44.9 - Chronic obstructive pulmonary disease, unspecified (6) Essential (primary) hypertension: Code(s): I10 - Essential (primary) hypertension Category: Medical Plan . 68-year-old man with non nephrotic range proteinuria in a setting of longstanding diabetes mellitus hypertension obesity. He probably has underlying diabetic kidney disease. Obesity could be a contributing factor. Other nondiabetic causes are possible but less likely from a clinical standpoint Renal function stable with a creatinine of 0.8 mg/dL. Blood pressure is well controlled at this time. Recommendations : Maintain blood pressure less than 130/80 Maintain A1c less than 7%. Continue with ROSANGELA inhibitor for renal protection. Discussed importance of weight loss. He will benefit from an SGLT2 inhibitor. Initiated a workup including urine protein creatinine ratio and SPEP. Encouraged him to stay on low-sodium diet He needs to quit smoking which I have discussed with him. Increase physical activity to optimize BMI. Orders: Orders Creatinine Urine Today E11.65 - Type 2 diabetes mellitus with hyperglycemia, R80.9 - Proteinuria, unspecified Protein Electrophoresis, Serum Today E11.65 - Type 2 diabetes mellitus with hyperglycemia, R80.9 - Proteinuria, unspecified Total Protein Urine Random Today E11.65 - Type 2 diabetes mellitus with hyperglycemia, R80.9 - Proteinuria, unspecified UA and rflx microscopic Today E11.65 - Type 2 diabetes mellitus with hyperglycemia, R80.9 - Proteinuria, unspecified Coding Level of Care Code New Pt Level 4 (73595) Diagnoses Type 2 diabetes mellitus with hyperglycemia, without long-term current use of insulin E11.65 Diabetes mellitus type: type 2 Diabetes mellitus longterm insulin use: without intermediate designer use Diabetes mellitus complication status: with hyperglycemia Microalbuminuria R80.9 Adrenal adenoma D35.00 Smoker F17.200 Chronic obstructive pulmonary disease, unspecified COPD type J44.9 COPD type: unspecified COPD Essential (primary) hypertension I10
== END 2023-11-23 14:12 | disposition home or self-care (01) ==
PROVIDERS: PCP Internal Medicine; Visit Provider Internal Medicine Hypertension Specialist
DX: E11.65 Type 2 diabetes mellitus with hyperglycemia (principal); R80.9 Proteinuria, unspecified; D35.00 Benign neoplasm of unspecified adrenal gland; F17.200 Nicotine dependence, unspecified, uncomplicated; J44.9 Chronic obstructive pulmonary disease, unspecified; I10 Essential (primary) hypertension
CPT/HCPCS: 99204

== ENCOUNTER → 2023-11-23 13:16 | Outpatient (BNVA) | payer MEDICARE, OTHER, SELFPAY | PROVIDERS: PCP Internal Medicine; Visit Provider Internal Medicine Hypertension Specialist | DX: R80.9 Proteinuria, unspecified (principal); E11.65 Type 2 diabetes mellitus with hyperglycemia; I10 Essential (primary) hypertension; D35.00 Benign neoplasm of unspecified adrenal gland; J44.9 Chronic obstructive pulmonary disease, unspecified; F17.210 Nicotine dependence, cigarettes, uncomplicated | CPT/HCPCS: 99202 ==

== ENCOUNTER 2023-12-16 08:29 | Outpatient (AMB) | payer MEDICARE, OTHER, SELFPAY ==
[2023-12-16 09:34] VITALS: BP 122/67; PULSE 94; O2SAT 96; BMI 29.0
--- NOTE | 2023-12-16 09:34 | MHC.OFFVIS ---
Vital Signs 12/16/23 09:34 Height 6 ft Weight 213 lb 13.574 oz BMI 29.0 BP 122/67 Blood Pressure Location Lt brachial Position Sitting Pulse 94 Pulse Source Doppler Pulse Oximetry (%) 96 Oxygen Delivery Method Room Air Intake Visit Reasons: COPD Allergies No Known Allergies Allergy (Verified 12/16/23 09:37) HPI HPI COPD: Details: 68-year-old gentleman, active 30+ pack-year smoker referred for pulmonary evaluation. Patient had recent CT chest that demonstrated emphysema. He denies dyspnea on exertion. He is currently on no bronchodilator therapy. He does have first-degree relatives with emphysema. Patient denies exposure to industrial dusts. [facility] Medical History (Updated 12/16/23 @ 10:04 by Dylon Jennings MD) Mild major depression Hyperlipidemia LDL goal <70 Essential (primary) hypertension Diabetes mellitus Class 1 obesity with body mass index (BMI) of 32.0 to 32.9 in adult Surgical History H/O colonoscopy Family History Mother No problems noted. Father Substance use disorder Alcoholism Social History (Updated 12/16/23 @ 09:38 by Irene Perry [facility]) Housing: House Alcohol intake: former Patient Tobacco Use Status: Current everyday Tobacco user Tobacco use type: Cigarette Cigarettes Per Day: 10 Years Smoked: started at age 17, 1.5 PPD e-Cigarette/Vaping Use: Never Used Second Hand Smoke Exposure: No service: Yes Current occupational status: retired Cognitive needs: No Hearing needs: No Vision needs: Yes Review of Systems Const Denies daytime sleepiness, Denies excessive sweating, Denies fatigue, Denies fever(s), Denies lethargy, Denies malaise, Denies night sweats, Denies snoring and Denies weight loss Eyes Denies blurry vision and Denies itchy eyes ENT Denies nasal congestion, Denies post nasal drip, Denies sinus pain, Denies sinus pressure and Denies other ( Thrush) Card Denies chest pain, Denies pedal edema, Denies dyspnea, Denies orthopnea and Denies paroxysmal nocturnal dyspnea Resp Denies cough, Denies hemoptysis, Denies excessive phlegm production, Denies dyspnea, Denies snoring and Denies wheezing GI Denies abdominal pain and Denies heartburn Musc Denies myalgias, Denies arthralgias and Denies joint swelling Skin/Breast Denies rash Neuro Denies memory loss and Denies seizure-like activity Psych Denies abnormal sleep pattern, Denies anxiety and Denies memory loss Endo Denies excessive sweating, Denies fatigue and Denies heat intolerance Leoncio/Lymph Denies easy bruising Aller/Immun Denies itchy eyes, Denies seasonal rhinorrhea and Denies wheezing Physical Exam Vital Signs: Last Vital Signs Pulse 94 12/16/23 09:34 BP 122/67 12/16/23 09:34 Pulse Ox 96 12/16/23 09:34 Oxygen Delivery Method Room Air 12/16/23 09:34 BMI result Body Mass Index 29.0 Const General: no acute distress and alert Nutritional Appearance: not obese Orientation/consciousness: Other orientation findings ( oriented) HEENT Head: Yes atraumatic Eyes General: appearance normal, both eyes and all related structures Sclerae: sclerae normal EOM: EOMs intact bilaterally Neck Neck: Yes supple Lymphatic: no lymphadenopathy noted Resp Effort & Inspection: normal respiratory effort and no use of accessory muscles Auscultation: clear to auscultation bilaterally Cardio Rate: regular rate Rhythm: regular rhythm Heart sounds: no gallops, no murmurs and no rubs Skin General skin exam: other ( warm) Extrem General: No clubbing, No cyanosis and No edema Assessment & Plan Assessment & Plan (1) COPD (chronic obstructive pulmonary disease): Code(s): J44.9 - Chronic obstructive pulmonary disease, unspecified Category: Medical Qualifiers: COPD type: unspecified COPD Qualified Code(s): J44.9 - Chronic obstructive pulmonary disease, unspecified Plan: Emphysema likely underlying COPD of unclear severity. Will obtain full PFT. (2) Personal history of nicotine dependence: Code(s): Z87.891 - Personal history of nicotine dependence Category: Medical Plan: Results of CT chest from August of 2023 reviewed. No worrisome nodules at this time. Continue with yearly screening, next in August of 2024. Orders: Orders PFT pulmonary function test Today J44.9 - Chronic obstructive pulmonary disease, unspecified Coding Level of Care Code New Pt Level 4 (45763) Diagnoses Chronic obstructive pulmonary disease, unspecified COPD type J44.9 COPD type: unspecified COPD Personal history of nicotine dependence Z87.898
== END 2023-12-16 09:53 | disposition home or self-care (01) ==
PROVIDERS: PCP Internal Medicine; Referring Provider Internal Medicine; Visit Provider Internal Medicine Pulmonary Disease
DX: J44.9 Chronic obstructive pulmonary disease, unspecified (principal); Z87.891 Personal history of nicotine dependence
CPT/HCPCS: 99204

== ENCOUNTER → 2023-12-16 08:29 | Outpatient (BNVA) | payer MEDICARE, OTHER, SELFPAY | PROVIDERS: PCP Internal Medicine; Referring Provider Internal Medicine; Visit Provider Internal Medicine Pulmonary Disease | DX: J44.9 Chronic obstructive pulmonary disease, unspecified (principal); F17.210 Nicotine dependence, cigarettes, uncomplicated | CPT/HCPCS: 99202 ==

== ENCOUNTER 2023-12-23 13:13 | Outpatient (AMB) | payer MEDICARE, OTHER, SELFPAY ==
[2023-12-23 13:16] VITALS: BP 142/72; PULSE 89; O2SAT 97; BMI 29.6
--- NOTE | 2023-12-23 13:16 | HO.NEPHOV ---
Vital Signs 12/23/23 13:16 12/23/23 13:26 Height 6 ft Weight 218 lb BMI 29.6 BP 142/72 H 130/70 Blood Pressure Location Lt brachial Lt brachial Position Sitting Sitting Pulse 89 Pulse Source Pulse Oximeter Pulse Oximetry (%) 97 Oxygen Delivery Method Room Air Intake Visit Reasons: Proteinuria/ Conf Auto Air Conditioning Installer Required: No Accompanied by: Self / Same As Patient Allergies No Known Allergies Allergy (Verified 12/23/23 13:18) Medication List - Last Reconciled 12/23/23 by Manuel Powers MD atenolol 50 mg PO DAILY atorvastatin 80 mg PO DAILY 90 days cholecalciferol (vitamin D3) 25 mcg PO .every other day glyburide 5 mg PO BID linagliptin (Tradjenta) 5 mg PO DAILY 90 days lisinopril 30 mg PO DAILY metformin 1,000 mg PO BID 90 days paroxetine HCl 20 mg PO DAILY 90 days pioglitazone 15 mg PO DAILY 90 days HPI Comments Details: . Juvencio is a 68-year-old man with a history of diabetes mellitus diagnosed in 1991. He has a history of hypertension and obesity as well. He was found to have microalbuminuria and hence this referral. Recent serum creatinine was 0.8 mg/dL. Of note he tells me that his blood sugar has been well controlled. His blood pressure is under control as well. He is on ROSANGELA inhibitors. History of left adrenal adenoma measuring 3 cm; CT scan 09/11/2023; consistent with benign adenoma [facility] Medical History (Updated 12/16/23 @ 10:04 by Dylon Jennings MD) Mild major depression Hyperlipidemia LDL goal <70 Essential (primary) hypertension Diabetes mellitus Class 1 obesity with body mass index (BMI) of 32.0 to 32.9 in adult Surgical History H/O colonoscopy Family History Mother No problems noted. Father Substance use disorder Alcoholism Social History Housing: House Alcohol intake: former Patient Tobacco Use Status: Current everyday Tobacco user Tobacco use type: Cigarette Cigarettes Per Day: 10 Years Smoked: started at age 17, 1.5 PPD e-Cigarette/Vaping Use: Never Used Second Hand Smoke Exposure: No service: Yes Current occupational status: retired Cognitive needs: No Hearing needs: No Vision needs: Yes Review of Systems Neuro Denies confusion Psych Denies confusion Physical Exam Vital Signs: Last Vital Signs Pulse 89 12/23/23 13:16 BP 130/70 12/23/23 13:26 Pulse Ox 97 12/23/23 13:16 Oxygen Delivery Method Room Air 12/23/23 13:16 BMI result Body Mass Index 29.6 Const General: No confusion Orientation/consciousness: No confusion Eyes General: appearance normal, both eyes and all related structures Visual Morfin: normal visual morfin by confrontation Neck Neck: Yes supple and Yes no JVD Resp Effort & Inspection: normal respiratory effort and respiratory effort not decreased Auscultation: rhonchi Cardio Palpation: no palpable S3 and no palpable S4 Heart sounds: no rubs GI Inspection: Yes normal to inspection Palpation (GI): Soft to palpation Percussion: Yes normal to percussion Auscultation: normal bowel sounds General: Yes no CVA tenderness Back/Spine/Pelvis Back: no CVA tenderness Skin General skin exam: no petechiae and no purpura Neuro General: No confusion Extrem General: No clubbing and No edema Results Reviewed Nephrology Results: Hgb 15.7 g/dl (14.0-18.0) 11/15/23 WBC 12.0 X10*3/uL (4.8-10.8) H 11/15/23 Plt Count 388 X10*3/uL (160-400) 11/15/23 Sodium 138 mmol/L (135-145) 11/15/23 Potassium 4.2 mmol/L (3.3-5.1) 11/15/23 Chloride 107 mmol/L (96-108) 11/15/23 Carbon Dioxide 23 mmol/L (22-29) 11/15/23 BUN 14 mg/dL (9-16) 11/15/23 Creatinine 0.75 mg/dL (0.5-1.4) 11/15/23 Calcium 10.4 mg/dL (8.4-10.2) H 11/15/23 Urine Creatinine 165.19 mg/dL 11/15/23 Assessment & Plan Assessment & Plan (1) Essential (primary) hypertension: Code(s): I10 - Essential (primary) hypertension Category: Medical (2) Microalbuminuria: Code(s): R80.9 - Proteinuria, unspecified Category: Medical (3) Diabetes mellitus: Comment: eye care with Dr. Barnes in 06/25/2021 Code(s): E11.9 - Type 2 diabetes mellitus without complications Category: Medical Qualifiers: Diabetes mellitus type: type 2 Diabetes mellitus fci insulin use: without termite technician use Diabetes mellitus complication status: with hyperglycemia Qualified Code(s): E11.65 - Type 2 diabetes mellitus with hyperglycemia (4) Adrenal adenoma: Code(s): D35.00 - Benign neoplasm of unspecified adrenal gland Category: Medical (5) Smoker: Code(s): F17.200 - Nicotine dependence, unspecified, uncomplicated Category: Social Hx (6) COPD (chronic obstructive pulmonary disease): Code(s): J44.9 - Chronic obstructive pulmonary disease, unspecified Category: Medical Qualifiers: COPD type: unspecified COPD Qualified Code(s): J44.9 - Chronic obstructive pulmonary disease, unspecified Plan . 68-year-old man with non nephrotic range proteinuria in a setting of longstanding diabetes mellitus hypertension obesity. He probably has underlying diabetic kidney disease. Obesity could be a contributing factor. Other nondiabetic causes are possible but less likely from a clinical standpoint Renal function stable with a creatinine of 0.8 mg/dL. Blood pressure is well controlled at this time. Recommendations : Maintain blood pressure less than 130/80 Maintain A1c less than 7%. Continue with ROSANGELA inhibitor for renal protection. Discussed importance of weight loss. He will benefit from an SGLT2 inhibitor. Mild hypercalcemia. Decrease vitamin-D to every other day Check serum calcium PTH and SPEP prior to next visit Encouraged him to stay on low-sodium diet He needs to quit smoking which I have discussed with him. Follow up with Pulmonary for COPD Increase physical activity to optimize BMI. Orders: Orders Basic Metabolic Panel 4 Months Manuel Powers MD I10 - Essential (primary) hypertension, R80.9 - Proteinuria, unspecified Phosphorus 4 Months Manuel Powers MD I10 - Essential (primary) hypertension, R80.9 - Proteinuria, unspecified Creatinine Urine 4 Months Manuel Powers MD I10 - Essential (primary) hypertension, R80.9 - Proteinuria, unspecified Uric Acid 4 Months Manuel Powers MD I10 - Essential (primary) hypertension, R80.9 - Proteinuria, unspecified Parathyroid Hormone Intact 4 Months Manuel Powers MD I10 - Essential (primary) hypertension, R80.9 - Proteinuria, unspecified Total Protein Urine Random 4 Months Manuel Powers MD I10 - Essential (primary) hypertension, R80.9 - Proteinuria, unspecified Vitamin D 25-OH (D2 and D3) 4 Months Manuel Powers MD I10 - Essential (primary) hypertension, R80.9 - Proteinuria, unspecified Protein Electrophoresis, Serum 4 Months Manuel Powers MD I10 - Essential (primary) hypertension, R80.9 - Proteinuria, unspecified Medications: Changed From cholecalciferol (vitamin D3) 25 mcg PO DAILY 90 days 90 caps 1RF To cholecalciferol (vitamin D3) 25 mcg PO .every other day Aranza Saxena MD Coding Level of Care Code Est Pt Level 4 (99880) Diagnoses Essential (primary) hypertension I10 Microalbuminuria R80.9 Type 2 diabetes mellitus with hyperglycemia, without long-term current use of insulin E11.65 Diabetes mellitus type: type 2 Diabetes mellitus termite technician insulin use: without fci use Diabetes mellitus complication status: with hyperglycemia Adrenal adenoma D35.00 Smoker F17.200 Chronic obstructive pulmonary disease, unspecified COPD type J44.9 COPD type: unspecified COPD
[2023-12-23 13:26] VITALS: BP 130/70
== END 2023-12-23 13:32 | disposition home or self-care (01) ==
PROVIDERS: PCP Internal Medicine; Visit Provider Internal Medicine Hypertension Specialist
DX: I10 Essential (primary) hypertension (principal); R80.9 Proteinuria, unspecified; E11.65 Type 2 diabetes mellitus with hyperglycemia; D35.00 Benign neoplasm of unspecified adrenal gland; F17.200 Nicotine dependence, unspecified, uncomplicated; J44.9 Chronic obstructive pulmonary disease, unspecified
CPT/HCPCS: 99214

== ENCOUNTER → 2023-12-23 13:13 | Outpatient (BNVA) | payer MEDICARE, OTHER, SELFPAY | PROVIDERS: PCP Internal Medicine; Visit Provider Internal Medicine Hypertension Specialist | DX: R80.9 Proteinuria, unspecified (principal); E11.65 Type 2 diabetes mellitus with hyperglycemia; I10 Essential (primary) hypertension; D35.00 Benign neoplasm of unspecified adrenal gland; J44.9 Chronic obstructive pulmonary disease, unspecified; F17.210 Nicotine dependence, cigarettes, uncomplicated | CPT/HCPCS: 99212 ==

== ENCOUNTER → 2024-01-12 10:21 | Outpatient (BNVA) | payer MEDICARE, OTHER, SELFPAY | PROVIDERS: PCP Internal Medicine; Visit Provider Internal Medicine Pulmonary Disease ==

== ENCOUNTER 2024-03-30 14:06 | Outpatient (AMB) | payer MEDICARE, OTHER, SELFPAY ==
[2024-03-30 14:12] VITALS: BP 130/86; BMI 29.8
--- NOTE | 2024-03-30 14:12 | MHC.PC.OV ---
Vital Signs 03/30/24 14:12 Height 6 ft Weight 220 lb BMI 29.8 BP 130/86 Blood Pressure Location Lt brachial Position Sitting Intake Visit Reasons: dm Intake Note: Patient here for a follow up DM Creasing And Cutting Press Feeder Required: No Accompanied by: Self / Same As Patient Allergies No Known Allergies Allergy (Verified 03/30/24 14:26) Medication List - Last Reconciled 03/30/24 by Aranza Saxena MD atenolol 50 mg PO DAILY atorvastatin 80 mg PO DAILY 90 days cholecalciferol (vitamin D3) 25 mcg PO .every other day glyburide 5 mg PO BID 90 days linagliptin (Tradjenta) 5 mg PO DAILY 90 days lisinopril 30 mg PO DAILY metformin 1,000 mg PO BID 90 days paroxetine HCl 20 mg PO DAILY 90 days pioglitazone 15 mg PO DAILY 90 days Tobacco use date assessed: 07/12/23 Fall risk assessment: No Falls in past year Last assessed Fall Risk: 03/30/24 Dental Screening Dental Screen Date: 03/30/24 Did you have a dental visit in the last 12 months?: No Did you have a dental problem in the last 6 months where you did not have access to dental care?: No Was dental information given to patient?: Patient has dentist HPI HPI Comments History of Present Illness Details This is a 69-year-old male with diabetes mellitus type 2, hypertension, hyperlipidemia, microalbuminuria, COPD, mild major depression and adrenal adenoma that comes today for follow-up on his conditions. A1c has mildly worsened dietary changes were advised. Blood pressure stable. Lipid panel will be order and his LDL goal should be less than 70. Microalbuminuria is follow by Nephrology. COPD follow by pulmonology and use rescue inhaler once a month. Mild major depression stable with medications. Has left adrenal adenoma and I will refer him to endocrinology. No chest pain or shortness on breath. [facility] Medical History Mild major depression Hyperlipidemia LDL goal <70 Essential (primary) hypertension Diabetes mellitus Class 1 obesity with body mass index (BMI) of 32.0 to 32.9 in adult Surgical History H/O colonoscopy Family History Mother No problems noted. Father Substance use disorder Alcoholism Social History Housing: House Alcohol intake: former Patient Tobacco Use Status: Current everyday Tobacco user Tobacco use type: Cigarette Cigarettes Per Day: 10 Years Smoked: started at age 17, 1.5 PPD e-Cigarette/Vaping Use: Never Used Second Hand Smoke Exposure: No service: Yes Current occupational status: retired Cognitive needs: No Hearing needs: No Vision needs: Yes Questionnaire Thrive Questionnaire Date Thrive assessed: 07/12/23 TERRELL-7 AMB Questionnaire TERRELL-7 Date TERRELL - 7 assessed: 07/12/23 Source: Developed by Drs. Adam Carter, Deb Farris, Cristian Guerrero and colleagues, with an educational aurora from [employer]. Review of Systems Const All systems reviewed & are unremarkable except as noted in HPI and below Card Denies chest pain at rest, Denies chest pain with activity, Denies edema, Denies irregular heart rhythm, Denies claudication, Denies dyspnea, Denies dyspnea on exertion, Denies orthopnea, Denies paroxysmal nocturnal dyspnea and Denies slow heart rate Resp Denies cough, Denies dyspnea and Denies dyspnea on exertion GI Denies abdominal pain, Denies change in bowel habits, Denies excessive flatus, Denies nausea and Denies vomiting Physical exam (Primary Care) Vital Signs: Last Vital Signs BP 130/86 03/30/24 14:12 BMI result Body Mass Index 29.8 BMI Assessment/Plan discussion: High BMI High, discussed plan: lifestyle, weight reduction, dietary and physical activity Tobacco/Smoking Status: Tobacco use Status Tobacco use date assessed 07/12/23 03/30/24 14:22 Patient Tobacco Use Status Current everyday Tobacco 03/30/24 14:22 Tobacco use type Cigarette 03/30/24 14:22 e-Cigarette/Vaping Use Never Used 03/30/24 14:22 Are you ready to quit: No Tobacco cessation counseling provided: Yes Items discussed: Nicotine replacement and QuitWorks Relapse Prevention: discussed the importance of a supportive environment, discussed extending NRT, discussed negative mood or depression after quitting, weight gain after smoking is common and discussed dietary, exercise and/or lifestyle changes Number of minutes spent counselin CPT code: 58266 - 4-10 Minutes Thrive Assessment: Date of Thrive Assessment Date Thrive assessed 07/12/23 03/30/24 14:22 Resp Effort & Inspection: normal respiratory effort Auscultation: clear to auscultation bilaterally Cardio Jugular venous distension: no JVD Rate: regular rate Rhythm: regular rhythm Heart sounds: S1 normal heart sound present and S2 normal heart sound present Extrem General: Yes full ROM Results AMB Hemoglobin A1c AMB Hemoglobin A1c 7.5 % Last Edit by DANIELA West on 03/30/24 14:33 Results Reviewed Results Reviewed: Laboratory Last Values Hgb A1c (Clinic) 7.5 % (4.0-6.0) H 03/30/24 14:11 Coding Level of Care Code Est Pt Level 4 (06001) Complex EM visit Add On G2211 Diagnoses Mild major depression F32.0 Chronic obstructive pulmonary disease, unspecified COPD type J44.9 COPD type: unspecified COPD Type 2 diabetes mellitus with hyperglycemia, without long-term current use of insulin E11.65 Diabetes mellitus complication status: with hyperglycemia Diabetes mellitus dairy quality assurance officer insulin use: without dairy quality assurance officer use Diabetes mellitus type: type 2 Essential (primary) hypertension I10 Hyperlipidemia LDL goal <70 E78.5 Microalbuminuria R80.9 Adrenal adenoma D35.00 Additional Codes Vital Signs *Quality* - CPT code: 41896 - 4-10 Minutes ([id number]) Time Spent (min) 23 Assessment & Plan Assessment & Plan (1) Mild major depression: Code(s): F32.0 - Major depressive disorder, single episode, mild Category: Medical Plan: Continue paroxetine. (2) COPD (chronic obstructive pulmonary disease): Code(s): J44.9 - Chronic obstructive pulmonary disease, unspecified Category: Medical Qualifiers: COPD type: unspecified COPD Qualified Code(s): J44.9 - Chronic obstructive pulmonary disease, unspecified Plan: Follow-up with pulmonology. (3) Diabetes mellitus: Comment: eye care with Dr. Barnes in 06/25/2021 Code(s): E11.9 - Type 2 diabetes mellitus without complications Category: Medical Qualifiers: Diabetes mellitus complication status: with hyperglycemia Diabetes mellitus dairy quality assurance officer insulin use: without halfway use Diabetes mellitus type: type 2 Qualified Code(s): E11.65 - Type 2 diabetes mellitus with hyperglycemia Plan: Continue glyburide, Tradjenta and metformin. A1c goal is equal or less than 7%. Follow a low-carbohydrate diet. (4) Essential (primary) hypertension: Code(s): I10 - Essential (primary) hypertension Category: Medical Plan: Continue lisinopril and add Tylenol. Blood pressure goal is equal or less than 130/80. (5) Hyperlipidemia LDL goal <70: Code(s): E78.5 - Hyperlipidemia, unspecified Category: Medical Plan: Continue statins. LDL goal is less than 70. (6) Microalbuminuria: Code(s): R80.9 - Proteinuria, unspecified Category: Medical Plan: Follow-up with nephrology. Avoid NSAIDs. Keep blood pressure less than 130/80. (7) Adrenal adenoma: Code(s): D35.00 - Benign neoplasm of unspecified adrenal gland Category: Medical Plan: Referred to Endocrinology. Orders: Orders AMB Hemoglobin A1c Today E11.65 - Type 2 diabetes mellitus with hyperglycemia Calcium, Ionized Today E83.52 - Hypercalcemia Microalbumin, Random (w Creat) Today R80.9 - Proteinuria, unspecified Referrals Endocrinology Referral D35.00 - Benign neoplasm of unspecified adrenal gland
== END 2024-03-30 14:35 | disposition home or self-care (01) ==
LOC: HO.HMCH 14:06
PROVIDERS: PCP Internal Medicine; Visit Provider Internal Medicine
DX: F32.0 Major depressive disorder, single episode, mild (principal); J44.9 Chronic obstructive pulmonary disease, unspecified; E11.65 Type 2 diabetes mellitus with hyperglycemia; I10 Essential (primary) hypertension; E78.5 Hyperlipidemia, unspecified; R80.9 Proteinuria, unspecified; D35.00 Benign neoplasm of unspecified adrenal gland

== ENCOUNTER → 2024-03-30 14:06 | Outpatient (BNVA) | payer MEDICARE, OTHER, SELFPAY | PROVIDERS: PCP Internal Medicine; Visit Provider Internal Medicine | DX: F32.0 Major depressive disorder, single episode, mild (principal); J44.9 Chronic obstructive pulmonary disease, unspecified; E11.65 Type 2 diabetes mellitus with hyperglycemia; I10 Essential (primary) hypertension; E78.5 Hyperlipidemia, unspecified; R80.9 Proteinuria, unspecified; D35.00 Benign neoplasm of unspecified adrenal gland | CPT/HCPCS: 83036; 99212 ==

== ENCOUNTER 2024-04-04 10:18 | Outpatient (REF) | payer MEDICARE, OTHER, SELFPAY ==
[2024-04-04 12:09] LABS: Appearance Urine Clear; Color Urine Dark Yellow; Glucose Urine UA Negative (Negative); Leukocyte Esterase Urine Negative (Negative); Nitrite Urine Negative (Negative); Specific Gravity - Urine 1.015 (1.005-1.025); UMIC TRIGGER UA YES; Urine Blood Negative (Negative); Urine Ketones Negative (Negative); Urine Protein 100 (2+) mg/dL (Neg-Trace)
[2024-04-04 12:15] LABS: Bacteria Urine None Seen (None Seen); RBC Urine 0-2 /HPF (0-2); Squamous Epithelial Cell Urine 0-2 /HPF (0-2); WBC Urine 0-5 /HPF (0-5)
[2024-04-04 12:23] LABS: Alanine Aminotransferase 16 U/L (0-40); Albumin Level 4.3 g/dL (3.5-5.0); Alkaline Phosphatase 81 U/L (39-117); Anion Gap 14 (12-20); Aspartate Amino Transferase 28 U/L (5-37); Bilirubin Total 0.5 mg/dL (0.0-1.0); Blood Urea Nitrogen 15 mg/dL (9-16); Calcium 10.1 mg/dL (8.4-10.2); Carbon Dioxide 21 mmol/L (22-29); Chloride 104 mmol/L (96-108); Cholesterol 159 mg/dL (<200); Estimated Glomerular Filt Rate > 60; Glucose Fasting 117 mg/dL (60-99); HDL Cholesterol 33 mg/dL (>40); LDL Cholesterol Calculated 74 mg/dL (<100); Phosphorus 3.3 mg/dL (2.7-4.5); Potassium 4.1 mmol/L (3.3-5.1); Sodium 135 mmol/L (135-145); Total Protein 7.4 g/dL (6.5-8.0); Triglycerides 263 mg/dL (<150); Uric Acid 4.9 mg/dL (3.4-7.0)
[2024-04-04 12:34] LABS: Creatinine Urine 111.48 mg/dL; Total Protein Urine Random 94 mg/dL (<12)
[2024-04-04 12:38] LABS: Creatinine Urine 112.98 mg/dL
[2024-04-04 13:04] LABS: Microalbum/Creatinine Ratio Ur 585.9 ug/mg cr (<30)
[2024-04-06 14:24] LABS: Calcium, Ionized 5.3 mg/dL (4.7-5.5)
[2024-04-06 21:58] LABS: Prot Elec - Albumin 4.1 g/dL (3.8-4.8); Prot Elec - Alpha1 0.3 g/dL (0.2-0.3); Prot Elec - Alpha2 0.9 g/dL (0.5-0.9); Prot Elec - Beta 1 0.4 g/dL (0.4-0.6); Prot Elec - Beta 2 0.5 g/dL (0.2-0.5); Prot Elec - Gamma 0.8 g/dL (0.8-1.7); Prot Elec - Total Protein 6.9 g/dL (6.1-8.1)
[2024-04-09 15:54] LABS: Vitamin D 25-OH, D2 <4 ng/mL; Vitamin D 25-OH, D3 22 ng/mL; Vitamin D 25-OH, Total 22 ng/mL (30-100)
== END 2024-04-04 10:19 | disposition home or self-care (01) ==
LOC: HO.LAB 10:18
PROVIDERS: Absent Provider Internal Medicine; PCP Internal Medicine; Visit Provider Internal Medicine Hypertension Specialist
DX: I10 Essential (primary) hypertension (principal); E11.65 Type 2 diabetes mellitus with hyperglycemia; R80.9 Proteinuria, unspecified; E78.5 Hyperlipidemia, unspecified; E11.9 Type 2 diabetes mellitus without complications; E83.52 Hypercalcemia
CPT/HCPCS: 36415; 80053; 80061; 81001; 81003; 82043; 82306; 82330; 82570; 83970; 84100; 84156; 84165; 84550; 99212

== ENCOUNTER 2024-04-04 10:18 | Outpatient (AMB) | payer MEDICARE, OTHER, SELFPAY ==
[2024-04-04 10:27] VITALS: BP 138/62; PULSE 80; O2SAT 94; BMI 29.3
--- NOTE | 2024-04-04 10:27 | HO.NEPHOV ---
Vital Signs 04/04/24 10:27 Height 6 ft Weight 216 lb BMI 29.3 BP 138/62 Blood Pressure Location Lt brachial Position Sitting Pulse 80 Pulse Source Pulse Oximeter Pulse Oximetry (%) 94 Oxygen Delivery Method Room Air Intake Visit Reasons: Proteinuria/ Conf Cork Tile Floor Layer Required: No Accompanied by: Self / Same As Patient Allergies No Known Allergies Allergy (Verified 04/04/24 10:30) HPI Comments Details: . Juvencio is a 68-year-old man with a history of diabetes mellitus diagnosed in 1991. He has a history of hypertension and obesity as well. He was found to have microalbuminuria and hence this referral. Recent serum creatinine was 0.8 mg/dL. Of note he tells me that his blood sugar has been well controlled. His blood pressure is under control as well. He is on ROSANGELA inhibitors. History of left adrenal adenoma measuring 3 cm; CT scan 09/11/2023; consistent with benign adenoma 04/04/24 Overall doing well Did not have blood test [facility] Medical History Mild major depression Hyperlipidemia LDL goal <70 Essential (primary) hypertension Diabetes mellitus Class 1 obesity with body mass index (BMI) of 32.0 to 32.9 in adult Surgical History H/O colonoscopy Family History Mother No problems noted. Father Substance use disorder Alcoholism Social History Housing: House Alcohol intake: former Patient Tobacco Use Status: Current everyday Tobacco user Tobacco use type: Cigarette Cigarettes Per Day: 10 Years Smoked: started at age 17, 1.5 PPD e-Cigarette/Vaping Use: Never Used Second Hand Smoke Exposure: No service: Yes Current occupational status: retired Cognitive needs: No Hearing needs: No Vision needs: Yes Review of Systems Neuro Denies confusion Psych Denies confusion Physical Exam Vital Signs: Last Vital Signs Pulse 80 04/04/24 10:27 BP 138/62 04/04/24 10:27 Pulse Ox 94 04/04/24 10:27 Oxygen Delivery Method Room Air 04/04/24 10:27 BMI result Body Mass Index 29.3 Const General: No confusion Orientation/consciousness: No confusion Eyes General: appearance normal, both eyes and all related structures Visual Morfin: normal visual morfin by confrontation Neck Neck: Yes supple and Yes no JVD Resp Effort & Inspection: normal respiratory effort and respiratory effort not decreased Auscultation: rhonchi Cardio Palpation: no palpable S3 and no palpable S4 Heart sounds: no rubs GI Inspection: Yes normal to inspection Palpation (GI): Soft to palpation Percussion: Yes normal to percussion Auscultation: normal bowel sounds General: Yes no CVA tenderness Back/Spine/Pelvis Back: no CVA tenderness Skin General skin exam: no petechiae and no purpura Neuro General: No confusion Extrem General: No clubbing and No edema Results Reviewed Nephrology Results: Hgb 15.7 g/dl (14.0-18.0) 11/15/23 WBC 12.0 X10*3/uL (4.8-10.8) H 11/15/23 Plt Count 388 X10*3/uL (160-400) 11/15/23 Sodium 138 mmol/L (135-145) 24 Potassium 4.2 mmol/L (3.3-5.1) 24 Chloride 107 mmol/L (96-108) 24 Carbon Dioxide 23 mmol/L (22-29) 24 BUN 14 mg/dL (9-16) 24 Creatinine 0.75 mg/dL (0.5-1.4) 24 Calcium 10.4 mg/dL (8.4-10.2) H 11/15/23 Urine Creatinine 165.19 mg/dL 11/15/23 Assessment & Plan Assessment & Plan (1) Essential (primary) hypertension: Code(s): I10 - Essential (primary) hypertension Category: Medical (2) Microalbuminuria: Code(s): R80.9 - Proteinuria, unspecified Category: Medical (3) Diabetes mellitus: Comment: eye care with Dr. Barnes in 06/25/2021 Code(s): E11.9 - Type 2 diabetes mellitus without complications Category: Medical Qualifiers: Diabetes mellitus type: type 2 Diabetes mellitus residential insulin use: without it service delivery manager use Diabetes mellitus complication status: with hyperglycemia Qualified Code(s): E11.65 - Type 2 diabetes mellitus with hyperglycemia (4) Adrenal adenoma: Code(s): D35.00 - Benign neoplasm of unspecified adrenal gland Category: Medical (5) Smoker: Code(s): F17.200 - Nicotine dependence, unspecified, uncomplicated Category: Social Hx (6) COPD (chronic obstructive pulmonary disease): Code(s): J44.9 - Chronic obstructive pulmonary disease, unspecified Category: Medical Qualifiers: COPD type: unspecified COPD Qualified Code(s): J44.9 - Chronic obstructive pulmonary disease, unspecified Plan . 68-year-old man with non nephrotic range proteinuria in a setting of longstanding diabetes mellitus hypertension obesity. He probably has underlying diabetic kidney disease. Obesity could be a contributing factor. Other nondiabetic causes are possible but less likely from a clinical standpoint Renal function stable with a creatinine of 0.8 mg/dL. Blood pressure is well controlled at this time. Left adrenal adenoma- Benign No hypokalemia or Alkalosis Probably an incidentaloma Waiting ot see Endocrine on 04/06/24 Recommendations : Maintain blood pressure less than 130/80 Maintain A1c less than 7%. Continue with ROSANGELA inhibitor for renal protection. Discussed importance of weight loss. He will benefit from an SGLT2 inhibitor. Mild hypercalcemia. Decreased vitamin-D to every other day in November 2023 Check serum calcium PTH and SPEP -(ordered) Encouraged him to stay on low-sodium diet He needs to quit smoking which I have discussed with him. Follow up with Pulmonary for COPD Increase physical activity to optimize BMI. Coding Level of Care Code Est Pt Level 4 (09999) Diagnoses Essential (primary) hypertension I10 Microalbuminuria R80.9 Type 2 diabetes mellitus with hyperglycemia, without long-term current use of insulin E11.65 Diabetes mellitus type: type 2 Diabetes mellitus it service delivery manager insulin use: without it service delivery manager use Diabetes mellitus complication status: with hyperglycemia Adrenal adenoma D35.00 Smoker F17.200 Chronic obstructive pulmonary disease, unspecified COPD type J44.9 COPD type: unspecified COPD
== END 2024-04-04 12:09 | disposition home or self-care (01) ==
PROVIDERS: PCP Internal Medicine; Visit Provider Internal Medicine Hypertension Specialist
DX: I10 Essential (primary) hypertension (principal); R80.9 Proteinuria, unspecified; E11.65 Type 2 diabetes mellitus with hyperglycemia; D35.00 Benign neoplasm of unspecified adrenal gland; F17.200 Nicotine dependence, unspecified, uncomplicated; J44.9 Chronic obstructive pulmonary disease, unspecified
CPT/HCPCS: 99214

== ENCOUNTER 2024-04-06 08:33 | Outpatient (AMB) | payer MEDICARE, OTHER, SELFPAY ==
[2024-04-06 08:34] VITALS: BP 126/70; PULSE 89; BMI 29.3
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
== END 2024-04-06 09:14 | disposition home or self-care (01) ==
PROVIDERS: PCP Internal Medicine; Visit Provider Student in an Organized Health Care Education/Training Program
DX: D35.02 Benign neoplasm of left adrenal gland (principal)
CPT/HCPCS: 99204

== ENCOUNTER 2024-04-06 08:33 | Outpatient (REF) | payer MEDICARE, OTHER, SELFPAY ==
[2024-04-06 10:21] LABS: Appearance Urine Clear; Color Urine Yellow; Glucose Urine UA Negative (Negative); Leukocyte Esterase Urine Negative (Negative); Nitrite Urine Negative (Negative); Specific Gravity - Urine <= 1.005 (1.005-1.025); UMIC TRIGGER UA YES; Urine Blood Negative (Negative); Urine Ketones Negative (Negative); Urine Protein 30 (1+) mg/dL (Neg-Trace)
[2024-04-06 10:24] LABS: Bacteria Urine None Seen (None Seen); Hyaline Casts Urine 0-2 /LPF (0-2); RBC Urine 0-2 /HPF (0-2); Squamous Epithelial Cell Urine 0-2 /HPF (0-2); WBC Urine 0-5 /HPF (0-5)
[2024-04-06 10:50] LABS: Anion Gap 9 (12-20); Blood Urea Nitrogen 12 mg/dL (9-16); Calcium 9.1 mg/dL (8.4-10.2); Carbon Dioxide 25 mmol/L (22-29); Chloride 105 mmol/L (96-108); Estimated Glomerular Filt Rate > 60; Glucose Random 119 mg/dL (60-115); Potassium 4.4 mmol/L (3.3-5.1); Sodium 135 mmol/L (135-145)
[2024-04-06 11:00] LABS: Creatinine Urine 35.72 mg/dL; Total Protein Urine Random 23 mg/dL (<12)
[2024-04-06 15:19] LABS: Cortisol Random 8.2 ug/dL
[2024-04-08 09:09] LABS: DHEA Sulfate 53 mcg/dL (20-217)
[2024-04-11 10:44] LABS: Prot Elec - Albumin 4.1 g/dL (3.8-4.8); Prot Elec - Alpha1 0.3 g/dL (0.2-0.3); Prot Elec - Alpha2 0.9 g/dL (0.5-0.9); Prot Elec - Beta 1 0.5 g/dL (0.4-0.6); Prot Elec - Beta 2 0.5 g/dL (0.2-0.5); Prot Elec - Gamma 0.8 g/dL (0.8-1.7)
[2024-04-12 14:08] LABS: Adrenocorticotropic Hormone 11 pg/mL (6-50)
[2024-04-14 06:13] LABS: Metanephrine, Free 31 pg/mL (<=57); Normetanephrines, Free 103 pg/mL (<=148); Total Metanephrine, Free 134 pg/mL (<=205)
[2024-04-14 11:09] LABS: Dexamethasone <20 ng/dL
[2024-04-14 16:44] LABS: Renin 5.34 ng/mL/h (0.25-5.82)
== END 2024-04-06 08:34 | disposition home or self-care (01) ==
LOC: HO.LAB 08:33
PROVIDERS: Internal Medicine Hypertension Specialist; PCP Internal Medicine; Visit Provider Student in an Organized Health Care Education/Training Program
DX: D35.02 Benign neoplasm of left adrenal gland (principal); R80.9 Proteinuria, unspecified; I10 Essential (primary) hypertension
CPT/HCPCS: 36415; 80048; 80299; 81001; 82024; 82088; 82533; 82570; 82627; 83835; 84156; 84165; 84244; 99202

== ENCOUNTER 2024-06-02 07:41 | Outpatient (REF) | payer MEDICARE, OTHER, SELFPAY ==
--- NOTE | ~2024-06-02 | CT_ITS ---
EXAMINATION: CT ABDOMEN WITHOUT IV CONTRAST HISTORY: D35.02 - Benign neoplasm of left adrenal gland COMPARISON: Comparison is made with the prior examination dated 08/25/2023. TECHNIQUE: CT scan of the abdomen was performed without contrast using standard departmental protocol. Coronal and sagittal reformatted images were generated and reviewed. Oral contrast material was not administered per department protocol. This CT exam was performed with one or more of the following dose reduction techniques: automated exposure control, adjustment of the mA and/or kV according to patient size, use of iterative reconstruction technique. DLP: 364 mGy-cm FINDINGS: LOWER CHEST: The visualized lung bases are clear. There is no pleural effusion. LIVER: The visualized portion of the liver is normal in size and contour. The liver has an unremarkable unenhanced appearance. GALLBLADDER / BILE DUCTS: There is a punctate calculus in the gallbladder. There is no intra or extrahepatic biliary ductal dilatation. SPLEEN: The spleen is normal in size and has an unremarkable unenhanced appearance. PANCREAS: The pancreas has an unremarkable unenhanced appearance. ADRENAL GLANDS: The right adrenal gland is unremarkable. Again seen is a 2.8 cm left adrenal nodule which measures -3.6 HU in density, consistent with an adenoma. KIDNEYS/RETROPERITONEUM: No renal calculi are identified. There is no hydronephrosis. There is a probable 1.3 cm cyst at the lower pole of the left kidney. There is a retroaortic left renal vein. LYMPH NODES: No retroperitoneal lymphadenopathy is identified in the abdomen or pelvis. VASCULATURE: The abdominal aorta demonstrates atherosclerotic calcification, but is normal in caliber. MESENTERY/PERITONEUM: No free fluid. No masses. There is no free intraperitoneal gas. BOWEL: The visualized bowel loops are normal in caliber. BONES / SOFT TISSUES: There is degenerative disc disease of the spine. CT/CT abdomen wo IV con IMPRESSION: Stable 2.8 cm left adrenal adenoma. Electronically signed by: Adam Durbin MD 06/05/2024 02:37 PM [facility] [place]
== END 2024-06-02 07:42 | disposition home or self-care (01) ==
LOC: HO.CT 07:41
PROVIDERS: PCP Internal Medicine; Visit Provider Student in an Organized Health Care Education/Training Program
DX: D35.02 Benign neoplasm of left adrenal gland (principal)
CPT/HCPCS: 74150

== ENCOUNTER → 2024-06-02 07:44 | Outpatient (BNV) | payer MEDICARE, OTHER, SELFPAY | PROVIDERS: PCP Internal Medicine; Visit Provider Radiology Diagnostic Radiology | DX: D35.02 Benign neoplasm of left adrenal gland (principal) | CPT/HCPCS: 74150 ==

== ENCOUNTER 2024-07-31 10:23 | Outpatient (AMB) | payer MEDICARE, OTHER, SELFPAY ==
--- NOTE | 2024-07-31 10:30 | HO.NEPHOV_ITS ---
Vital Signs 07/31/24 10:31 07/31/24 10:42 Height 6 ft Weight 216 lb BMI 29.3 BP 140/80 H 120/70 Blood Pressure Location Lt brachial Lt brachial Position Sitting Sitting Pulse 94 Pulse Source Pulse Oximeter Pulse Oximetry (%) 97 Oxygen Delivery Method Room Air Intake Visit Reasons: Proteinuria/ Conf Silvering Department Supervisor Required: No Accompanied by: Self / Same As Patient Allergies No Known Allergies Allergy (Verified 07/31/24 10:33) Medication List - Last Reconciled 07/31/24 by Manuel Powers MD atenolol 50 mg PO DAILY atorvastatin 80 mg PO DAILY 90 days cholecalciferol (vitamin D3) 25 mcg PO .every other day dexamethasone 1 mg PO DAILY glyburide 5 mg PO BID 90 days linagliptin (Tradjenta) 5 mg PO DAILY 90 days lisinopril 30 mg PO DAILY metformin 1,000 mg PO BID 90 days paroxetine HCl 20 mg PO DAILY 90 days pioglitazone 15 mg PO DAILY 90 days HPI Comments Details: . Juvencio is a 68-year-old man with a history of diabetes mellitus diagnosed in 1991. He has a history of hypertension and obesity as well. He was found to have microalbuminuria and hence this referral. Recent serum creatinine was 0.8 mg/dL. Of note he tells me that his blood sugar has been well controlled. His blood pressure is under control as well. He is on ROSANGELA inhibitors. History of left adrenal adenoma measuring 3 cm; CT scan 09/11/2023; consistent with benign adenoma 04/04/24 Overall doing well Did not have blood test ON LICENSE OF [facility] Medical History Mild major depression Hyperlipidemia LDL goal <70 Essential (primary) hypertension Diabetes mellitus Class 1 obesity with body mass index (BMI) of 32.0 to 32.9 in adult Surgical History H/O colonoscopy Family History Mother No problems noted. Father Substance use disorder Alcoholism Social History Housing: House Alcohol intake: former Patient Tobacco Use Status: Current everyday Tobacco user Tobacco use type: Cigarette Cigarettes Per Day: 10 Years Smoked: started at age 17, 1.5 PPD e-Cigarette/Vaping Use: Never Used Second Hand Smoke Exposure: No service: Yes Current occupational status: retired Cognitive needs: No Hearing needs: No Vision needs: Yes Review of Systems Neuro Denies confusion Psych Denies confusion Physical Exam Vital Signs: Last Vital Signs Pulse 94 07/31/24 10:31 BP 140/80 H 07/31/24 10:31 Pulse Ox 97 07/31/24 10:31 Oxygen Delivery Method Room Air 07/31/24 10:31 BMI result Body Mass Index 29.3 Const General: No confusion Orientation/consciousness: No confusion Eyes General: appearance normal, both eyes and all related structures Visual Morfin: normal visual morfin by confrontation Neck Neck: Yes supple and Yes no JVD Resp Effort & Inspection: normal respiratory effort and respiratory effort not decreased Auscultation: rhonchi Cardio Palpation: no palpable S3 and no palpable S4 Heart sounds: no rubs GI Inspection: Yes normal to inspection Palpation (GI): Soft to palpation Percussion: Yes normal to percussion Auscultation: normal bowel sounds General: Yes no CVA tenderness Back/Spine/Pelvis Back: no CVA tenderness Skin General skin exam: no petechiae and no purpura Neuro General: No confusion Extrem General: No clubbing and No edema Results Reviewed Nephrology Results: Sodium 135 mmol/L (135-145) 04/06/24 Potassium 4.4 mmol/L (3.3-5.1) 04/06/24 Chloride 105 mmol/L (96-108) 04/06/24 Carbon Dioxide 25 mmol/L (22-29) 04/06/24 BUN 12 mg/dL (9-16) 04/06/24 Creatinine 0.77 mg/dL (0.5-1.4) 04/06/24 Calcium 9.1 mg/dL (8.4-10.2) 04/06/24 Phosphorus 3.3 mg/dL (2.7-4.5) 04/04/24 PTH Intact 39.0 pg/mL (8.7-77.1) 04/04/24 Urine Protein 30 (1+) mg/dL (Neg-Trace) H 04/06/24 Urine Creatinine 35.72 mg/dL 04/06/24 Assessment & Plan Assessment & Plan (1) Essential (primary) hypertension: Code(s): I10 - Essential (primary) hypertension Category: Medical (2) Microalbuminuria: Code(s): R80.9 - Proteinuria, unspecified Category: Medical (3) Diabetes mellitus: Comment: eye care with Dr. Barnes in 06/25/2021 Code(s): E11.9 - Type 2 diabetes mellitus without complications Category: Medical Qualifiers: Diabetes mellitus type: type 2 Diabetes mellitus correction insulin use: without rat exterminator use Diabetes mellitus complication status: with hyperglycemia Qualified Code(s): E11.65 - Type 2 diabetes mellitus with hyperglycemia (4) Adrenal adenoma: Code(s): D35.00 - Benign neoplasm of unspecified adrenal gland Category: Medical Qualifiers: Laterality: left Qualified Code(s): D35.02 - Benign neoplasm of left adrenal gland (5) Smoker: Code(s): F17.200 - Nicotine dependence, unspecified, uncomplicated Category: Social Hx (6) COPD (chronic obstructive pulmonary disease): Code(s): J44.9 - Chronic obstructive pulmonary disease, unspecified Category: Medical Qualifiers: COPD type: unspecified COPD Qualified Code(s): J44.9 - Chronic obstructive pulmonary disease, unspecified (7) Hypercalcemia: Code(s): E83.52 - Hypercalcemia Category: Medical Plan . 68-year-old man with non nephrotic range proteinuria in a setting of longstanding diabetes mellitus hypertension obesity. He probably has underlying diabetic kidney disease. Obesity could be a contributing factor. Other nondiabetic causes are possible but less likely from a clinical standpoint Renal function stable with a creatinine of 0.8 mg/dL. Blood pressure is well controlled at this time. Left adrenal adenoma- Benign No hypokalemia or Alkalosis Probably an incidentaloma Seen by Endocrine on 04/06/24 Recommendations : Maintain blood pressure less than 130/80 Maintain A1c less than 7%. Continue with ROSANGELA inhibitor for renal protection. Discussed importance of weight loss. He will benefit from an SGLT2 inhibitor. Mild hypercalcemia. Decreased vitamin-D to every other day in November 2023 Follow serum calcium PTH - ordered SPEP - no MCGP Encouraged him to stay on low-sodium diet He needs to quit smoking which I have discussed with him. Follow up with Pulmonary for COPD Increase physical activity to optimize BMI. Orders: Orders Complete Blood Count no Diff Today E83.52 - Hypercalcemia, I10 - Essential (primary) hypertension Comprehensive Met. Panel Today E83.52 - Hypercalcemia, I10 - Essential (coyd arleth) hypertension Parathyroid Hormone Intact Today E83.52 - Hypercalcemia, I10 - Essential (primary) hypertension Phosphorus Today E83.52 - Hypercalcemia, I10 - Essential (primary) hypertension Coding Level of Care Code Est Pt Level 4 (19631) Diagnoses Essential (primary) hypertension I10 Microalbuminuria R80.9 Type 2 diabetes mellitus with hyperglycemia, without long-term current use of insulin E11.65 Diabetes mellitus type: type 2 Diabetes mellitus correction insulin use: without rat exterminator use Diabetes mellitus complication status: with hyperglycemia Adenoma of left adrenal gland D35.02 Laterality: left Smoker F17.200 Chronic obstructive pulmonary disease, unspecified COPD type J44.9 COPD type: unspecified COPD Hypercalcemia E83.52
[2024-07-31 10:31] VITALS: BP 140/80; PULSE 94; O2SAT 97; BMI 29.3
[2024-07-31 10:42] VITALS: BP 120/70
== END 2024-07-31 10:47 | disposition home or self-care (01) ==
PROVIDERS: PCP Internal Medicine; Visit Provider Internal Medicine Hypertension Specialist
DX: I10 Essential (primary) hypertension (principal); R80.9 Proteinuria, unspecified; E11.65 Type 2 diabetes mellitus with hyperglycemia; D35.02 Benign neoplasm of left adrenal gland; F17.200 Nicotine dependence, unspecified, uncomplicated; J44.9 Chronic obstructive pulmonary disease, unspecified; E83.52 Hypercalcemia
CPT/HCPCS: 99214

== ENCOUNTER → 2024-07-31 10:23 | Outpatient (BNVA) | payer MEDICARE, OTHER, SELFPAY | PROVIDERS: PCP Internal Medicine; Visit Provider Internal Medicine Hypertension Specialist | DX: R80.9 Proteinuria, unspecified (principal); I10 Essential (primary) hypertension; E66.9 Obesity, unspecified; E11.65 Type 2 diabetes mellitus with hyperglycemia; D35.02 Benign neoplasm of left adrenal gland; J44.9 Chronic obstructive pulmonary disease, unspecified; E83.52 Hypercalcemia; F17.210 Nicotine dependence, cigarettes, uncomplicated; Z68.29 Body mass index [BMI] 29.0-29.9, adult | CPT/HCPCS: 99212 ==

== ENCOUNTER 2024-11-22 07:36 | Outpatient (REF) | payer MEDICARE, OTHER, SELFPAY ==
[2024-11-22 08:49] LABS: Hematocrit 43.6 % (42.0-52.0); Hemoglobin 15.0 g/dl (14.0-18.0); Mean Corpuscular HGB Conc 34.4 g/dl (31.0-36.0); Mean Corpuscular Hemoglobin 32.6 pg (27.0-33.0); Mean Corpuscular Volume 94.8 fL (80.0-98.0); NRBC Abs Auto 0.000 X10*3/uL (0.0-0.012); NRBC Pct Auto 0.0 /100WBC (0.0-0.2); Platelet Count 395 X10*3/uL (160-400); Red Blood Count 4.60 X10*6/uL (4.60-5.80); White Blood Count 11.1 X10*3/uL (4.8-10.8)
[2024-11-22 08:59] LABS: Alanine Aminotransferase 19 U/L (0-40); Albumin Level 4.5 g/dL (3.5-5.0); Alkaline Phosphatase 112 U/L (39-117); Anion Gap 11 (12-20); Aspartate Amino Transferase 16 U/L (5-37); Blood Urea Nitrogen 17 mg/dL (9-16); Calcium 9.3 mg/dL (8.4-10.2); Carbon Dioxide 24 mmol/L (22-29); Chloride 105 mmol/L (96-108); Estimated Glomerular Filt Rate > 60; Potassium 4.4 mmol/L (3.3-5.1); Sodium 136 mmol/L (135-145); Total Protein 7.2 g/dL (6.5-8.0)
[2024-11-22 10:14] LABS: Parathyroid Hormone Intact 32.8 pg/mL (8.7-77.1)
== END 2024-11-22 07:37 | disposition home or self-care (01) ==
LOC: HO.LAB 07:36
PROVIDERS: PCP Internal Medicine; Visit Provider Internal Medicine Hypertension Specialist
DX: I10 Essential (primary) hypertension (principal); E83.52 Hypercalcemia
CPT/HCPCS: 36415; 80053; 83970; 84100; 85027

== ENCOUNTER 2024-11-23 14:22 | Outpatient (AMB) | payer MEDICARE, OTHER, SELFPAY ==
--- OUTSIDE RECORDS SUMMARY | 2024-11-23 14:24 | XMS_ITS | Encounter Summary ---
Author Organization [facility] Address [address] [place] [address] Care Team Providers Care Lumber Piler Operator Name Role Phone Luisito Herrmann MD Primary Care Provider [phone] [facility], Pcp Primary Care Provider Judith martines Encounter Details Date Type Department Care Team Description 12/06/2012 [employer] Coordinator Report Medical Records [address] [place] [address] Amber Aguilar MD Social History Tobacco Use Types Packs/Day Years Used Date Smoking Tobacco: Every Day Cigarettes 0.3 Smokeless Tobacco: Never Quit: 05/14/2010 Comments:1-2 cig daily Alcohol Use Standard Drinks/Week Comments No 0 (1 standard drink = 0.6 oz pur e alcohol) Alcohol Habits Answer Date Recorded How often do you have a drin k containing alcohol? 4 or more times a week 09/16/2021 How many drinks containing a lcohol do you have on a typical day when you are drinking? 1 or 2 09/16/2021 How often do you have six or more drinks on one occasion? Never 09/16/2021 Social Isolation Answer Date Recorded In a typical week, how many times do you talk on the phone with family, friends, or neighbors? Once a week 09/16/2021 How often do you get togethe r with friends or relatives? Not asked How often do you attend chur ch or jain services? More than 4 times per year 09/16/2021 Do you belong to any clubs o r organizations such as anglican groups, unions, fraternal or athletic groups, or school groups? Yes 09/16/2021 How often do you attend meet ings of the clubs or organizations you belong to? 1 to 4 times per year 09/16/2021 Are you now , , , , never or living with a partner? 09/16/2021 Physical Activity Answer Date Recorded On average, how many days pe r week do you engage in moderate to strenuous exercise (like walking fast, running, jogging, dancing, swimming, biking, or other activities that cause a light or heavy sweat)? 7 days 09/16/2021 On average, how many minutes do you engage in exercise at this level? 40 min 09/16/2021 Stress Answer Date Recorded Do you feel stress - tense, restless, nervous, or anxious, or unable to sleep at night because your mind is troubled all the time - these days? Very much 09/16/2021 Financial Resource Strain Answer Date R ecorded How hard is it for you to pa y for the very basics like food, housing, medical care, and heating? Not hard at all 09/16/2021 Intimate Partner Violence Answer Date R ecorded Within the last year, have y ou been afraid of your partner or ex-partner? No 09/16/2021 Within the last year, have y ou been humiliated or emotionally abused in other ways by your partner or ex-partner? No Within the last year, have y ou been kicked, hit, slapped, or otherwise physically hurt by your partner or ex-partner? No 09/16/2021 Within the last year, have y ou been raped or forced to have any kind of sexual activity by your partner or ex-partner? No 09/16/2021 Food Insecurity Answer Date Recorded Within the past 12 months, y ou worried that your food would run out before you got money to buy more. Never true 09/16/2021 Within the past 12 months, t he food you bought just didn't last and you didn't have money to get more. Never true 09/16/2021 Transportation Needs Answer Date Record ed In the past 12 months, has l ack of transportation kept you from medical appointments or from getting medications? No 08/23 In the past 12 months, has l ack of transportation kept you from meetings, work, or getting things needed for daily living? No 09/16/2021 Housing Stability Answer Date Recorded In the last 12 months, was t here a time when you were not able to pay the mortgage or rent on time? No 09/16/2021 In the last 12 months, how many places have you lived? 1 09/16/2021 In the last 12 months, was t here a time when you did not have a steady place to sleep or slept in a care home (including now)? No 09/16/2021 Sex Assigned at Date Recorded Not on file documented as of this encounter Plan of Treatment Not on file documented as of this encounter Visit Diagnoses Not on filedocumented in this encounter Care Teams Lumber Piler Operator Relationship Specialty Start Date End Date Luisito Herrmann MD [address] [place] [address] PCP - General 04/10/04 02/15/22 [facility], Pcp [address] [place] [address] PCP - General Internal Medicine 02/16/22 documented as of this encounter
--- NOTE | 2024-11-23 14:28 | HO.NEPHOV_ITS ---
Vital Signs 11/23/24 14:30 Height 5 ft 8 in Weight 209 lb 4 oz BMI 31.8 BP 130/80 Blood Pressure Location Rt brachial Position Sitting Pulse 88 Pulse Source Pulse Oximeter Pulse Oximetry (%) 100 Oxygen Delivery Method Room Air Intake Visit Reasons: 4 MO FU-Conf Ware Finisher Required: No Accompanied by: Self / Same As Patient Allergies No Known Allergies Allergy (Verified 11/23/24 14:30) Medication List - Last Reconciled 11/23/24 by Manuel Powers MD atenolol 50 mg PO DAILY atorvastatin 80 mg PO DAILY 90 days cholecalciferol (vitamin D3) 25 mcg PO .every other day dexamethasone 1 mg PO DAILY glyburide 5 mg PO BID 90 days linagliptin (Tradjenta) 5 mg PO DAILY 90 days lisinopril 30 mg PO DAILY metformin 1,000 mg PO BID 90 days paroxetine HCl 20 mg PO DAILY 90 days pioglitazone 15 mg PO DAILY 90 days HPI Comments Details: . Juvencio is a 68-year-old man with a history of diabetes mellitus diagnosed in 1991. He has a history of hypertension and obesity as well. He was found to have microalbuminuria and hence this referral. Recent serum creatinine was 0.8 mg/dL. Of note he tells me that his blood sugar has been well controlled. His blood pressure is under control as well. He is on ROSANGELA inhibitors. History of left adrenal adenoma measuring 3 cm; CT scan 09/11/2023; consistent with benign adenoma 04/04/24;Overall doing well;Did not have blood test 11/23/24 The patient is a 69-year-old male presenting for a routine follow-up visit to monitor CKD The patient reports a reduction in smoking to one pack per day, indicating a history of tobacco use disorder. He acknowledges the need to quit smoking entirely. The patient has a history of hyperglycemia, with recent lab results indicating elevated blood sugar levels. He is currently on glyburide, Trajenta, and metformin, and adheres to his medication regimen. The patient is advised to maintain his current medication regimen without changes. The patient has normal kidney function and calcium levels, as confirmed by recent laboratory tests. [facility] Medical History Mild major depression Hyperlipidemia LDL goal <70 Essential (primary) hypertension Diabetes mellitus Class 1 obesity with body mass index (BMI) of 32.0 to 32.9 in adult Surgical History H/O colonoscopy Family History Mother No problems noted. Father Substance use disorder Alcoholism Social History Housing: House Alcohol intake: former Patient Tobacco Use Status: Current everyday Tobacco user Tobacco use type: Cigarette Cigarettes Per Day: 10 Years Smoked: started at age 17, 1.5 PPD e-Cigarette/Vaping Use: Never Used Second Hand Smoke Exposure: No service: Yes Current occupational status: retired Cognitive needs: No Hearing needs: No Vision needs: Yes Review of Systems Neuro Denies confusion Psych Denies confusion Physical Exam Vital Signs: Last Vital Signs Pulse 88 11/23/24 14:30 BP 130/80 11/23/24 14:30 Pulse Ox 100 11/23/24 14:30 Oxygen Delivery Method Room Air 11/23/24 14:30 BMI result Body Mass Index 31.8 Const General: No confusion Orientation/consciousness: No confusion Eyes General: appearance normal, both eyes and all related structures Visual Morfin: normal visual morfin by confrontation Neck Neck: Yes supple and Yes no JVD Resp Effort & Inspection: normal respiratory effort and respiratory effort not decreased Auscultation: rhonchi Cardio Palpation: no palpable S3 and no palpable S4 Heart sounds: no rubs GI Inspection: Yes normal to inspection Palpation (GI): Soft to palpation Percussion: Yes normal to percussion Auscultation: normal bowel sounds General: Yes no CVA tenderness Back/Spine/Pelvis Back: no CVA tenderness Skin General skin exam: no petechiae and no purpura Neuro General: No confusion Extrem General: No clubbing and No edema Results Reviewed Nephrology Results: Hgb, (14.0-18.0) 15.0 g/dl 11/22/24 WBC, (4.8-10.8) 11.1 X10*3/uL H 11/22/24 Plt Count, (160-400) 395 X10*3/uL 11/22/24 Sodium, (135-145) 136 mmol/L 11/22/24 Potassium, (3.3-5.1) 4.4 mmol/L 11/22/24 Chloride, (96-108) 105 mmol/L 11/22/24 Carbon Dioxide, (22-29) 24 mmol/L 11/22/24 BUN, (9-16) 17 mg/dL H 11/22/24 Creatinine, (0.5-1.4) 0.65 mg/dL 11/22/24 Calcium, (8.4-10.2) 9.3 mg/dL 11/22/24 Phosphorus, (2.7-4.5) 2.9 mg/dL 11/22/24 PTH Intact, (8.7-77.1) 32.8 pg/mL 11/22/24 Urine Protein, (Neg-Trace) 30 (1+) mg/dL H 04/06/24 Urine Creatinine 35.72 mg/dL 04/06/24 Assessment & Plan Assessment & Plan (1) Essential (primary) hypertension: Code(s): I10 - Essential (primary) hypertension Category: Medical (2) Microalbuminuria: Code(s): R80.9 - Proteinuria, unspecified Category: Medical (3) Diabetes mellitus: Comment: eye care with Dr. Barnes in 06/25/2021 Code(s): E11.9 - Type 2 diabetes mellitus without complications Category: Medical Qualifiers: Diabetes mellitus complication status: with hyperglycemia Diabetes mellitus prison insulin use: without prison use Diabetes mellitus type: type 2 Qualified Code(s): E11.65 - Type 2 diabetes mellitus with hyperglycemia (4) Adrenal adenoma: Code(s): D35.00 - Benign neoplasm of unspecified adrenal gland Category: Medical Qualifiers: Laterality: left Qualified Code(s): D35.02 - Benign neoplasm of left adrenal gland (5) Smoker: Code(s): F17.200 - Nicotine dependence, unspecified, uncomplicated Category: Social Hx (6) COPD (chronic obstructive pulmonary disease): Code(s): J44.9 - Chronic obstructive pulmonary disease, unspecified Category: Medical Qualifiers: COPD type: unspecified COPD Qualified Code(s): J44.9 - Chronic obstructive pulmonary disease, unspecified (7) Hypercalcemia: Code(s): E83.52 - Hypercalcemia Category: Medical Plan . 69-year-old man with non nephrotic range proteinuria in a setting of longstandi ng diabetes mellitus hypertension obesity. He probably has underlying diabetic kidney disease. Obesity could be a contributing factor. Other nondiabetic causes are possible but less likely from a clinical standpoint Renal function stable with a creatinine of 0.8 mg/dL. Blood pressure is well controlled at this time. Left adrenal adenoma- Benign No hypokalemia or Alkalosis Probably an incidentaloma Seen by Endocrine on 04/06/24 Recommendations : Maintain blood pressure less than 130/80 Maintain A1c less than 7%. Continue with ROSANGELA inhibitor for renal protection. Discussed importance of weight loss. He will benefit from an SGLT2 inhibitor. s/p Mild hypercalcemia. - Decreased vitamin-D to every other day in November 2023 Follow serum calcium PTH -are normal SPEP - no MCGP Encouraged him to stay on low-sodium diet He needs to quit smoking which I have discussed with him. Follow up with Pulmonary for COPD Increase physical activity to optimize BMI. Orders: Orders Basic Metabolic Panel 5 Months I10 - Essential (primary) hypertension Coding Level of Care Code Est Pt Level 4 (41794) Diagnoses Essential (primary) hypertension I10 Microalbuminuria R80.9 Type 2 diabetes mellitus with hyperglycemia, without long-term current use of insulin E11.65 Diabetes mellitus complication status: with hyperglycemia Diabetes mellitus local intermodal truck driver insulin use: without local intermodal truck driver use Diabetes mellitus type: type 2 Adenoma of left adrenal gland D35.02 Laterality: left Smoker F17.200 Chronic obstructive pulmonary disease, unspecified COPD type J44.9 COPD type: unspecified COPD Hypercalcemia E83.52
[2024-11-23 14:30] VITALS: BP 130/80; PULSE 88; O2SAT 100; BMI 31.8
== END 2024-11-23 14:39 | disposition home or self-care (01) ==
LOC: HO.HKA 14:22
PROVIDERS: PCP Internal Medicine; Visit Provider Internal Medicine Hypertension Specialist
DX: I10 Essential (primary) hypertension (principal); R80.9 Proteinuria, unspecified; E11.65 Type 2 diabetes mellitus with hyperglycemia; D35.02 Benign neoplasm of left adrenal gland; F17.200 Nicotine dependence, unspecified, uncomplicated; J44.9 Chronic obstructive pulmonary disease, unspecified; E83.52 Hypercalcemia
CPT/HCPCS: 99214

== ENCOUNTER → 2024-11-23 14:22 | Outpatient (BNVA) | payer MEDICARE, OTHER, SELFPAY | PROVIDERS: PCP Internal Medicine; Visit Provider Internal Medicine Hypertension Specialist | DX: I10 Essential (primary) hypertension (principal); R80.9 Proteinuria, unspecified; E11.65 Type 2 diabetes mellitus with hyperglycemia; D35.02 Benign neoplasm of left adrenal gland; E83.52 Hypercalcemia; J44.9 Chronic obstructive pulmonary disease, unspecified; F17.210 Nicotine dependence, cigarettes, uncomplicated | CPT/HCPCS: 99212 ==

== ENCOUNTER 2025-04-17 11:12 | Outpatient (AMB) | payer MEDICARE, OTHER, SELFPAY ==
--- NOTE | 2025-04-17 11:16 | MHC.PC.OV ---
Vital Signs 04/17/25 11:17 Height 5 ft 8 in Weight 207 lb 2 oz BMI 31.5 BP 138/84 Blood Pressure Location Lt brachial Position Sitting Pulse 81 Pulse Source Pulse Oximeter Temp 97.5 F Temp Source Temporal Artery Scan Pulse Oximetry (%) 98 Oxygen Delivery Method Room Air Intake Visit Reasons: Med Review Bobtailer Required: No Accompanied by: Self / Same As Patient Allergies No Known Allergies Allergy (Verified 04/17/25 11:23) Medication List - Last Reconciled 04/17/25 by Aranza Saxena MD atenolol 50 mg PO DAILY atorvastatin 80 mg PO DAILY 90 days cholecalciferol (vitamin D3) 25 mcg PO .every other day dexamethasone 1 mg PO DAILY glyburide 5 mg PO BID 90 days linagliptin (Tradjenta) 5 mg PO DAILY 90 days lisinopril 30 mg PO DAILY metformin 1,000 mg PO BID 90 days pioglitazone 15 mg PO DAILY 90 days Tobacco use date assessed: 04/17/25 Fall risk assessment: 1 Fall in past year Last assessed Fall Risk: 04/17/25 Dental Screening Dental Screen Date: 04/17/25 Did you have a dental visit in the last 12 months?: No Did you have a dental problem in the last 6 months where you did not have access to dental care?: No Was dental information given to patient?: No HPI HPI Comments History of Present Illness Details The patient is a 70 year old individual presenting for chronic disease management. The patient has a history of COPD and tiny pulmonary nodules, for which a follow-up CT scan of the chest was due this year but was not completed. He does have diabetes mellitus type 2 with an A1c of 7% today. The patient's medication regimen includes atenolol 50 mg daily, glyburide, Trajenta, lisinopril, metformin, and pioglitazone. The patient also takes atorvastatin but has run out of this medication. The patient has no known drug allergies. For diabetes management, the patient sometimes checks blood sugar at home, with readings around 147 mg/dL. The patient has a history of depression and anxiety and has a referral to Behavioral Health. The patient reports experiencing stress due to issues with a neighbor. The patient smokes 10 cigarettes per day. [facility] Medical History Mild major depression Hyperlipidemia LDL goal <70 Essential (primary) hypertension Diabetes mellitus Class 1 obesity with body mass index (BMI) of 32.0 to 32.9 in adult Surgical History H/O colonoscopy Family History Mother No problems noted. Father Substance use disorder Alcoholism Social History Housing: House Alcohol intake: former Patient Tobacco Use Status: Current everyday Tobacco user Tobacco use type: Cigarette Cigarettes Per Day: 10 Years Smoked: started at age 17, 1.5 PPD e-Cigarette/Vaping Use: Never Used Second Hand Smoke Exposure: No service: Yes Current occupational status: retired Cognitive needs: No Hearing needs: No Vision needs: Yes Questionnaire PHQ-9 Over the last 2 weeks, how often have you been bothered by any of the following problems? 1. Little interest or pleasure in doing things: not at all 2. Feeling down, depressed, or hopeless: several days 3. Trouble falling or staying asleep, or sleeping too much: nearly every day 4. Feeling tired or having little energy: not at all 5. Poor appetite or overeating: several days 6. Feeling bad about yourself - or that you are a failure or have let yourself or your family down: not at all 7. Trouble concentrating on things, such as reading the newspaper or watching television: nearly every day 8. Moving or speaking so slowly that other people could have noticed. Or the opposite - being so fidgety or restless that you have been moving around a lot more than usual: several days 9. Thoughts that you would be better off or of hurting yourself in some way: not at all Total score: 9 Depression Screening Interpretation: Positive Depression Screening Follow-up: Existing condition and Follow-up Visit Requested Depression Screening Done: Yes 94134 - PHQ-9 Billing: Yes Source: Developed by Drs. Adam Carter, Deb Farris, Cristian Guerrero and colleagues, with an educational aurora from [employer]. Thrive Questionnaire Date Thrive assessed: 04/17/25 I am a: Patient What is your living situation today?: I have a steady place to live Within the past 12 months, did the food you bought not last and you didn't have the money to get more?: Never true Within the past 12 months, did you worry whether your food would run out before you got money to buy more?: Never true Do you have trouble paying for medicines?: No Do you have trouble getting transportation to medical appointments?: No Do you have trouble paying your heating and electricity bill?: No Do you have trouble taking care of your child, family member or friend?: No Do you have trouble with day-to-day activities such as bathing, preparing meals, shopping, managing finances, etc.?: No Are you currently unemployed and looking for a job?: No Are you interested in more education?: No Please select the resources that you would like help with: None THRIVE Score: 0 AUDIT C Alcohol Use Questionnaire (AUDIT-C) 1. How often do you have a drink containing alcohol?: Never 3. How often do you have six or more drinks on one occasion?: Never Total Score: 0 Score Reviewed/Action Taken: No TERRELL-7 AMB Questionnaire TERRELL-7 Date TERRELL - 7 assessed: 04/17/25 Feeling nervous, anxious, or on edge: 2 = More than half the days Not being able to stop or control worryin = More than half the days Worrying too much about different things: 3 = Nearly every day Trouble relaxin = Several days Being so restless that it is hard to sit still: 2 = More than half the days Becoming easily annoyed or irritable: 2 = More than half the days Feeling afraid as if something awful might happen: 1 = Several days Total TERRELL-7 score (0-4 normal; 5-9 mild; 10-14 moderate; 15-21 severe): 13 Source: Developed by Drs. Adam Carter, Deb Farris, Cristian Guerrero and colleagues, with an educational aurora from [employer]. TERRELL-7 Assessment Billing TERRELL-7 Assessment Tool: TERRELL-7 Assessment 41925 Review of Systems Const All systems reviewed & are unremarkable except as noted in HPI and below Card Denies chest pain at rest, Denies chest pain with activity, Denies edema, Denies irregular heart rhythm, Denies claudication, Denies dyspnea, Denies dyspnea on exertion, Denies orthopnea, Denies paroxysmal nocturnal dyspnea and Denies slow heart rate Resp Denies cough, Denies dyspnea and Denies dyspnea on exertion Physical exam (Primary Care) Vital Signs: Last Vital Signs Temp 97.5 F 04/17/25 11:17 Pulse 81 04/17/25 11:17 BP 138/84 04/17/25 11:17 Pulse Ox 98 04/17/25 11:17 Oxygen Delivery Method Room Air 04/17/25 11:17 BMI result Body Mass Index 31.5 BMI Assessment/Plan discussion: High BMI High, discussed plan: lifestyle, weight reduction, dietary and physical activity Tobacco/Smoking Status: Tobacco use Status Tobacco use date assessed 04/17/25 04/17/25 11:22 Patient Tobacco Use Status Current everyday Tobacco 04/17/25 11:22 Tobacco use type Cigarette 04/17/25 11:22 e-Cigarette/Vaping Use Never Used 04/17/25 11:22 PHQ-9: PHQ-9 Score PHQ-9: Total score 9 04/17/25 11:22 Depression Screening Interpretation: Positive Depression Screening Follow-up: Existing condition and Follow-up Visit Requested Thrive Assessment: Date of Thrive Assessment Date Thrive assessed 04/17/25 04/17/25 11:22 Resp Effort & Inspection: normal respiratory effort Auscultation: clear to auscultation bilaterally Cardio Jugular venous distension: no JVD Rate: regular rate Rhythm: regular rhythm Heart sounds: S1 normal heart sound present and S2 normal heart sound present Extrem General: Yes full ROM Results AMB Hemoglobin A1c AMB Hemoglobin A1c 7.0 % Last Edit by Judith Stone CMA on 04/17/25 11:25 Coding Level of Care Code Complex visit Add On G2211 Diagnoses Type 2 diabetes mellitus with hyperglycemia, without long-term current use of insulin E11.65 Diabetes mellitus type: type 2 Diabetes mellitus assisted insulin use: without assisted use Diabetes mellitus complication status: with hyperglycemia Hyperlipidemia LDL goal <70 E78.5 Essential (primary) hypertension I10 Mild major depression F32.0 Chronic obstructive pulmonary disease, unspecified COPD type J44.9 COPD type: unspecified COPD Additional Codes TERRELL-7 Assessment Billing - TERRELL-7 Assessment Tool: TERRELL-7 Assessment [id number] ([id number]) PHQ-9 - 87907 - PHQ-9 Billing: Yes ([id number]) Time Spent (min) 22 Assessment & Plan Assessment & Plan (1) Diabetes mellitus: Comment: eye care with Dr. Barnes in 06/25/2021 Code(s): E11.9 - Type 2 diabetes mellitus without complications Category: Medical Qualifiers: Diabetes mellitus type: type 2 Diabetes mellitus intermediate project manager insulin use: without intermediate project manager use Diabetes mellitus complication status: with hyperglycemia Qualified Code(s): E11.65 - Type 2 diabetes mellitus with hyperglycemia (2) Hyperlipidemia LDL goal <70: Code(s): E78.5 - Hyperlipidemia, unspecified Category: Medical (3) Essential (primary) hypertension: Code(s): I10 - Essential (primary) hypertension Category: Medical (4) Mild major depression: Code(s): F32.0 - Major depressive disorder, single episode, mild Category: Medical (5) COPD (chronic obstructive pulmonary disease): Code(s): J44.9 - Chronic obstructive pulmonary disease, unspecified Category: Medical Qualifiers: COPD type: unspecified COPD Qualified Code(s): J44.9 - Chronic obstructive pulmonary disease, unspecified Plan Plan 1. Copd And Pulmonary Nodules The patient has a history of COPD and pulmonary nodules and missed a scheduled CT scan of the chest this year. A referral will be sent to pulmonology for further evaluation and to schedule the necessary imaging. 2. Type 2 Diabetes Mellitus The patient reports home blood glucose readings around 147 mg/dL. Blood work will be ordered to check A1c, with a target of 7% or less. The patient will continue the current medication regimen including glyburide, Trajenta, metformin, and pioglitazone. 3. Hyperlipidemia The patient has run out of the prescribed atorvastatin. A prescription for atorvastatin will be reordered. 4. Hypertension The patient's blood pressure is well-controlled on the current regimen of atenolol and lisinopril. The patient will continue the current medications. 5. Anxiety And Depression The patient has a history of anxiety and depression and is being followed by Behavioral Health. The patient is encouraged to continue with the referral to Behavioral Health. 6. Tobacco Use Disorder The patient continues to smoke approximately 10 cigarettes per day. Orders: Orders AMB Hemoglobin A1c Today Z13.9 - Encounter for screening, unspecified Referrals Psychiatry Outpatient Consultation Service F32.0 - Major depressive disorder, single episode, mild Pulmonology Referral J44.9 - Chronic obstructive pulmonary disease, unspecified, R91.8 - Other nonspecific abnormal finding of lung field Lung Cancer Screening Referral F17.200 - Nicotine dependence, unspecified, uncomplicated Medications: Refilled atorvastatin 80 mg PO DAILY 90 tabs 1RF 90 days
[2025-04-17 11:17] VITALS: BP 138/84; PULSE 81; TEMP 36.4; O2SAT 98; BMI 31.5
--- OUTSIDE RECORDS SUMMARY | 2025-04-17 14:48 | XMS_ITS | Patient Health Record ---
[facility] Organization [facility] Address [address] [facility] [place] [address] Care Team Providers Care Gas System Operator Name Role Phone Jarek BLANK, Aranza Primary Care Provider Unavail able Yemi Fernandez Unavailable [phone] Allergies No Known Allergies Results Component Value Reference Range Notes HEMOGLOBIN A1C (GLYCOHEMOGLO BIN) Reviewed date:04/03/2025 02:09:36 PM Interpretation: Performing Lab: Notes/Report: HEMOGLOBIN A1C % (HH) 7.4 Reason For Referral No Information Medications Medication SIG (Take, Route, Frequency, Duration) Notes Start Date End Date Status Lisinopril 30 MG 1 tablet Orally Once a day Active metFORMIN HCl 1000 MG 1 tablet with a me al Orally Once a day Active glyBURIDE 5 MG 1 tablet with breakf ast or the first main meal of the day Orally Once a day Active Atenolol 80 mg Active Atorvastatin Calcium 80 MG 1 tablet Orally Once a day Active Pioglitazone HCl 15 MG 1 tablet Orally Once a day Active Extra Depth Orthopedic Shoes, (1) Pair With (3) Pair Custom Heat Molded Multidensity Innersoles Dx: NIDDM/PVD(E11.51), Hammertoe Foot Deformity(M20.41,M20.42), Preulcerative Skin Lesion(s)(L85.1) Wear Daily; Duration: 365 days 04/03/2025 Active Vitamin D3 1000 UNIT 1 capsule Orally On ce a day Active Immunizations Vaccine Route Administration Date Status Comme nts Influenza Unknown 02/22/2024 Administered Social History Tobacco Use: Social History Observation Description Date Details (start date - stop date) Current Smoker NA - NA Tobacco use other than smoking: Question Answer Notes Are you an other tobacco user? No Tobacco Control (Standard) Question Answer Notes Tobacco use: Current every day smoker Additional Findings: Tobacco user Moderate cigar ette smoker (10-19 cigs/day) AUDIT-C (Standard) Question Answer Notes Did you have a drink containing alcohol in the p ast year? No Points 0 Interpretation Negative Problems Problem Type SNOMED Code ICD Code Onset Dates Problem Status W/U Status Risk Notes Problem Acquired hammer toe of right foot (6973974685719 105) Other hammer toe(s) (acquired), right foot (M20.41) Active confirmed Problem Acquired hammer toe of left foot (8348390874177 103) Other hammer toe(s) (acquired), left foot (M20.42) Active confirmed Problem Type 2 diabetes mellitus with peripheral angiopathy (889239313) Type 2 diabetes mellitus with diabetic peripheral angiopathy without gangrene (E11.51) Active confirmed Q7(A), Q8(2B), Q9(1B,2C) Vital Signs Blood pressure diastolic 78 mm Hg 04/03/2025 Height 5ft8in in 04/03/2025 Blood pressure systolic 123 mm Hg 04/03/2025 Weight 217 lbs 04/03/2025 BMI 32.99 kg/m2 04/03/2025 Procedures Procedure Date Ordered Date Performed Result Body Sit e 24540-HGMAZZV NAIL, 1-5 04/03/2025 N/A 38657-TWYW SKIN LESIONS, 2 TO 4 04/03/2025 N/A [id number] DYSTROPHIC NAILS ANY # 04/03/2025 N/A Encounters Encounter Location Date Provider Diagnosis [facility] [address] 04/03/2025 Yemi Fernandez Type 2 diabetes mellitus with diabetic peripheral angiopathy without gangrene E11.51 ; Other hammer toe(s) (acquired), right foot M20.41 ; Tinea unguium B35.1 ; Pain in right toe(s) M79.674 ; Pain in left toe(s) M79.675 and Other hammer toe(s) (acquired), left foot M20.[facility] [address] 04/03/2025 Yemi Fernandez Assessments Encounter Date Diagnosis (ICD Code) Assessment Notes Treatment Notes Treatment Clinical Notes Section Notes 04/03/2025 Other hammer toe(s) (acquired), right foot (ICD-10 - M20.41) Patient Educated with: DIABETIC FOOT CARE INSTRUCTIONS.p df (DIABETIC FOOT CARE INSTRUCTIONS.p df) 04/03/2025 Type 2 diabetes mellitus with diabetic peripheral angiopathy without gangrene (ICD-10 - E11.51) Q7(A), Q8(2B), Q9(1B,2C) 04/03/2025 Tinea unguium (ICD-10 - B35.1) 04/03/2025 Pain in right toe(s) (ICD-10 - M79.674) 04/03/2025 Pain in left toe(s) (ICD-10 - M79.675) 04/03/2025 Other hammer toe(s) (acquired), left foot (ICD-10 - M20.42) Plan Of Treatment Pending Test Test Name Order Date [id number]-[id number] NAIL, 1-5 04/03/2025 17353-PKHC SKIN LESIONS, 2 TO 4 04/03/20 [id number] DYSTROPHIC NAILS ANY # Next Appt Details Provider Name:Yemi Fernandez , 07/24/2025 11:30:00 AM, [address] [place], [address], Insurance Providers Payer Name Payer Address Payer Phone Subscriber Number Group Number Insured Name Patient Relationship to Insured Coverage Start Date Coverage End Date Medicare [facility] [address] [place] [address] [phone] [id number] Juvencio Buck Self - patient is the insured [facility] [address] [place] [address] [id number] Juvencio Buck Self - patient is the insured Medical (General) History Medical History History ICD Code Anxiety Arthritis CAD (Cholesterol) Depression type II diabetes Headaches/Migraines High Blood Pressure Kidney disease Lung disease Adrenal Adenoma Benign prostatic hyperplasia (BPH) Measles Mumps Chicken pox COPD
--- OUTSIDE RECORDS SUMMARY | 2025-04-17 14:48 | XMS_ITS | Encounter Summary ---
Author Organization [facility] Address [address] [place] [address] Care Team Providers Care Refining Equipment Operator Name Role Phone Luisito Herrmann MD Primary Care Provider [phone] [facility], Pcp Primary Care Provider Unavailabl e Reason for Visit * Reason Comments E-prescribe Rx Request Encounter Details Date Type Department Care Team Description 02/14/2019 Refill Adult Medicine [address] [address] Michelle Green PA-C E-prescribe Rx Request Social History Tobacco Use Types Packs/Day Years Used Date Smoking Tobacco: Every Day Cigarettes 1 46 Started: 1975 Smokeless Tobacco: Never Quit: 05/14/2010 Alcohol Use Standard Drinks/Week Comments No 0 [...] Not asked How often do you attend [facility] or jain services? More than 4 times per year 09/16/2021 Do you belong to any clubs o r organizations such as sabianism groups, unions, fraternal or athletic groups, or [...] place to sleep or slept in a group home (including now)? No 09/16/2021 Sex Assigned at Date Recorded Not on file documented as of this encounter Miscellaneous Notes * Telephone Encounter - Julissa Schwab - 02/14/2019 2:56 PM EDT Lab Results Component Value Date HGBA1C 8.2 11/28/2018 MALBUR 198.0 11/28/2018 MALBCR 175.2 11/28/2018 CHOL 115 11/28/2018 LDL 53 11/28/2018 HDL 33 11/28/2018 TRIG 148 11/28/2018 GLU 125 11/28/2018 CREAT 0.69 11/28/2018 * Telephone Encounter - Stella Bryan - 02/14/2019 9:59 AM EDT Patient would like script to be: E-PRESCRIBED/FAXED TO PHARMACY WHEN WAS THE PATIENT'S LAST APPOINTMENT IN ADULT MEDICINE? 11-28-18 WHEN WAS THE LAST TIME THE PATIENT SAW THEIR PCP? 08-22-18 Does patient have an upcoming appointment? Yes 03-31-19 (THE MEDICATION REQUESTED IS ON THE MED LIST ABOVE) All of the medications requested were on the CURRENT MEDS list Did you check the Pharmacy information above?: YES Patient wants: 90 -day supply Is this a mail order prescription request ? NO If the refill is from a FAXED refill request what is the RX # listed on the fax? N/A Patients current insurance carrier is: [place] / [place] / Product Type: MEDICARE [id number] documented in this encounter Plan of Treatment Not on file documented as of this encounter Visit Diagnoses Not on filedocumented in this encounter Care Teams Refining Equipment Operator Relationship Specialty Start Date End Date Luisito Herrmann MD [address] [place] [address] PCP - General 04/10/04 02/15/22 [facility], Pcp [address] [place] [address] PCP - General Internal Medicine 02/16/22 documented as of this encounter
--- OUTSIDE RECORDS SUMMARY | 2025-04-17 14:48 | XMS_ITS | Encounter Summary ---
Author Organization [facility] Address [address] [place] [address] Care Team Providers Care Pharmacy Manager Name Role Phone Luisito Herrmnan MD Primary Care Provider [phone] [facility], Pcp Primary Care Provider Unavailabl e Reason for Visit * Reason Comments E-prescribe Rx Request Encounter Details Date Type Department Care Team Description 09/12/2018 Refill Adult Medicine [address] [id number] Luisito Herrmann MD [address] [place] [address] E-prescribe Rx Request Social History Tobacco Use Types Packs/Day Years Used Date Smoking Tobacco: Every Day Cigarettes 0.5 46 Started: 1975 Smokeless Tobacco: Never Quit: [...] Not asked How often do you attend [facility] or samaritan services? More than 4 times per year 09/16/2021 Do you belong to any clubs o r organizations such as christian groups, unions, fraternal or athletic groups, or [...] place to sleep or slept in a fdc (including now)? No 09/16/2021 Sex Assigned at Date Recorded Not on file documented as of this encounter Miscellaneous Notes * Telephone Encounter - Marta Pal M.A. - 09/12/2018 3:34 PM EDT Lab Results Component Value Date HGBA1C 6.4 12/28/2017 MALBUR 57.8 09/02/2017 MALBCR 93.2 09/02/2017 CHOL 146 09/02/2017 LDL 57 09/02/2017 HDL 36 09/02/2017 TRIG 265 09/02/2017 GLU 151 02/18/2018 CREAT 0.8 12/28/2017 * Telephone Encounter - Sasha Jordy - 09/12/2018 2:13 PM EDT Patient would like script to be: E-PRESCRIBED/FAXED TO PHARMACY WHEN WAS THE PATIENT'S LAST APPOINTMENT IN ADULT MEDICINE? 08/22/18 WHEN WAS THE LAST TIME THE PATIENT SAW THEIR PCP? Same as above Does patient have an upcoming appointment? Yes 11/21/18 (THE MEDICATION REQUESTED IS ON THE MED LIST ABOVE) All of the medications requested were on the CURRENT MEDS list Did you check the Pharmacy information above?: YES Patient wants: 30 -day supply Is this a mail order prescription request ? NO If the refill is from a FAXED refill request what is the RX # listed on the fax? N/A Patients current insurance carrier is: Payor: MEDICARE-[employer] / Plan: MEDICARE[employer] / Product Type: MEDICARE [id number] documented in this encounter Plan of Treatment Not on file documented as of this encounter Visit Diagnoses Not on filedocumented in this encounter Care Teams Pharmacy Manager Relationship Specialty Start Date End Date Luisito Herrmann MD [address] [place] [address] PCP - General 04/10/04 02/15/22 [facility], [address] [address] PCP - General Internal Medicine 02/16/22 documented as of this encounter
--- OUTSIDE RECORDS SUMMARY | 2025-04-17 14:48 | XMS_ITS | Encounter Summary ---
Author Organization [facility] Address [address] [place] [address] Care Team Providers Care Wicker Molded Candles Name Role Phone Luisito Herrmann MD Primary Care Provider [phone] [facility], Pcp Primary Care Provider Judith martines Encounter Details Date Type Department Care Team Description 12/06/2012 Installer Apprentice Report Medical Records [address] [place] [address] Amber Aguilar MD Social History Tobacco Use [...] often do you attend chur ch or quaker services? More than 4 times per year 09/16/2021 Do you belong to any clubs o r organizations such as islam groups, unions, fraternal or athletic groups, or [...] place to sleep or slept in a long term (including now)? No 09/16/2021 Sex Assigned at Date Recorded Not on file documented as of this encounter Plan of Treatment Not on file documented as of this encounter Visit Diagnoses Not on filedocumented in this encounter Care Teams Wicker Molded Candles Relationship Specialty Start Date End Date Luisito Herrmann MD [address] [place] [address] PCP - General 04/10/04 02/15/22 [facility], Pcp [address] [place] [address] PCP - General Internal Medicine 02/16/22 documented as of this encounter
--- OUTSIDE RECORDS SUMMARY | 2025-04-17 14:48 | XMS_ITS | Encounter Summary ---
Author Organization [facility] Address [address] [place] [address] Care Team Providers Care Billet Heater Name Role Phone Luisito Herrmann MD Primary Care Provider [phone] [facility], Pcp Primary Care Provider Unavailabl e Reason for Visit * Reason Comments E-prescribe Rx Request Encounter Details Date Type Department Care Team Description 01/19/2019 Refill Adult Medicine [address] [address] Michelle Green PA-C E-prescribe Rx Request Social [...] Not asked How often do you attend [facility] or zoroastrianism services? More than 4 times per year 09/16/2021 Do you belong to any clubs o r organizations such as judaism groups, unions, fraternal or athletic groups, or [...] place to sleep or slept in a alf (including now)? No 09/16/2021 Sex Assigned at Date Recorded Not on file documented as of this encounter Miscellaneous Notes * Telephone Encounter - Cata Coello M.A. - 01/20/2019 7:16 AM EDT Lab Results Component Value Date HGBA1C 8.2 11/28/2018 MALBUR 198.0 11/28/2018 MALBCR 175.2 11/28/2018 CHOL 115 11/28/2018 LDL 53 11/28/2018 HDL 33 11/28/2018 TRIG 148 11/28/2018 GLU 125 11/28/2018 CREAT 0.69 11/28/2018 * Telephone Encounter - Stella Bryan - 01/19/2019 10:22 AM EDT Patient would like script to be: E-PRESCRIBED/FAXED TO PHARMACY WHEN WAS THE PATIENT'S LAST APPOINTMENT IN ADULT MEDICINE? 11-28-18 WHEN WAS THE LAST TIME THE PATIENT SAW THEIR PCP? 08-22-18 Does patient have an upcoming appointment? 03-31-19 (THE MEDICATION REQUESTED IS ON THE [...] / [place] / Product Type: MEDICARE [id number] documented in this encounter Plan of Treatment Not on file documented as of this encounter Visit Diagnoses Not on filedocumented in this encounter Care Teams Billet Heater Relationship Specialty Start Date End Date Luisito Herrmann MD [address] [place] [address] PCP - General 04/10/04 02/15/22 [facility], Pcp [address] [place] [address] PCP - General Internal Medicine 02/16/22 documented as of this encounter
--- OUTSIDE RECORDS SUMMARY | 2025-04-17 14:48 | XMS_ITS | Encounter Summary ---
Author Organization [facility] Address [address] [place] [address] Care Team Providers Care Highway Maintenance Technician Name Role Phone [facility], Pcp Primary Care Provider Judith fairchild Encounter Details Date Type Department Care Team Description 02/16/2022 Telephone Adult Medicine [address] [address] [facility], Pcp Social History Tobacco Use Types Packs/Day Years Used Date Smoking Tobacco: Every Day Cigarettes 0.5 46 Started: 1975 Smokeless Tobacco: Never Quit: 05/14/2010 Alcohol Use Standard Drinks/Week Comments Not Currently 2 (1 standard drink = 0.6 oz pur [...] often do you attend chur ch or adventist services? More than 4 times per year 09/16/2021 Do you belong to any clubs o r organizations such as lutheran groups, unions, fraternal or athletic groups, or [...] in a fdc (including now)? No 09/16/2021 Education Answer Date Recorded What is the highest level of school you have completed or the highest degree you have received? GED or equivalent Sex Assigned at Date Recorded Not on file documented as of this encounter Plan of Treatment Not on file documented as of this encounter Visit Diagnoses Not on filedocumented in this encounter Care Teams Highway Maintenance Technician Relationship Specialty Start Date End Date [facility], Pcp PCP - General Internal Medicine 02/16/22 documented as of this encounter
--- OUTSIDE RECORDS SUMMARY | 2025-04-17 14:49 | XMS_ITS | Encounter Summary ---
Author Organization [facility] Address [address] [place] [address] Care Team Providers Care Rewinder Operator Name Role Phone Luisito Herrmann MD Primary Care Provider [phone] [facility], Pcp Primary Care Provider Unavailabl e Reason for Visit * Reason Comments E-prescribe Rx Request Encounter Details Date Type Department Care Team Description 07/24/2019 Refill Adult Medicine [address] [phone] Luisito Herrmann MD [address] [place] [address] E-prescribe Rx Request Social History Tobacco Use [...] Not asked How often do you attend [facility] or sikhism services? More than 4 times per year 09/16/2021 Do you belong to any clubs o r organizations such as buddhist groups, unions, fraternal or athletic groups, or [...] place to sleep or slept in a intermediate (including now)? No 09/16/2021 Sex Assigned at Date Recorded Not on file documented as of this encounter Miscellaneous Notes * Telephone Encounter - Cata Coello M.A. - 07/25/2019 8:14 AM EST Lab Results Component Value Date CHOL 115 11/28/2018 LDL 53 11/28/2018 HDL 33 11/28/2018 TRIG 148 11/28/2018 SGOT 18 11/28/2018 SGPT 28 11/28/2018 * Telephone Encounter - Amanda Han - 07/24/2019 4:34 PM EST Patient would like script to be: E-PRESCRIBED/FAXED TO PHARMACY WHEN WAS THE PATIENT'S LAST APPOINTMENT IN ADULT MEDICINE? 07/05/19 WHEN WAS THE LAST TIME THE PATIENT SAW THEIR PCP? 08/22/18 Does patient have an upcoming appointment? Yes 09/29/19 (THE MEDICATION REQUESTED IS ON THE MED [...] / [place] / Product Type: MEDICARE [id number] documented in this encounter Plan of Treatment Not on file documented as of this encounter Visit Diagnoses Not on filedocumented in this encounter Care Teams Rewinder Operator Relationship Specialty Start Date End Date Luisito Herrmann MD [address] [place] [address] PCP - General 04/10/04 02/15/22 [facility], Pcp [address] [place] [address] PCP - General Internal Medicine 02/16/22 documented as of this encounter
--- OUTSIDE RECORDS SUMMARY | 2025-04-17 14:49 | XMS_ITS | Encounter Summary ---
Author Organization [facility] Address [address] [place] [address] Care Team Providers Care Safekeeping Clerk Name Role Phone Luisito Herrmann MD Primary Care Provider [phone] [facility], Pcp Primary Care Provider Unavailabl e Reason for Visit * Reason Comments E-prescribe Rx Request Encounter Details Date Type Department Care Team Description 07/08/2018 Refill Adult Medicine [address] [phone] Luisito Herrmann MD [address] [place] [address] E-prescribe Rx Request Social History Tobacco Use [...] Not asked How often do you attend [facility] or latter-day services? More than 4 times per year 09/16/2021 Do you belong to any clubs o r organizations such as sabianist groups, unions, fraternal or athletic groups, or [...] Telephone Encounter - Marta Pal M.A. - 07/08/2018 3:26 PM EST Lab Results Component Value Date NA 141 12/28/2017 K 4.6 12/28/2017 CO2 23.9 12/28/2017 CL 103 12/28/2017 BUN 13 12/28/2017 CREAT 0.8 12/28/2017 GLU 151 02/18/2018 CA 10.0 12/28/2017 GFR > 60 12/28/2017 * Telephone Encounter - Neymar Feliciano - 07/08/2018 10:32 AM EST Patient would like script to be: E-PRESCRIBED/FAXED TO PHARMACY WHEN WAS THE PATIENT'S LAST APPOINTMENT IN ADULT MEDICINE? 01/03/18 WHEN WAS THE LAST TIME THE PATIENT SAW THEIR PCP? Same as above Does patient have an upcoming appointment? Letter sent to book next appointment (THE MEDICATION REQUESTED IS ON THE MED [...] N/A Patients current insurance carrier is: [place] / Product Type: MEDICARE [id number] documented in this encounter Plan of Treatment Not on file documented as of this encounter Visit Diagnoses Not on filedocumented in this encounter Care Teams Safekeeping Clerk Relationship Specialty Start Date End Date Luisito Herrmann MD [address] [place] [address] PCP - General 04/10/04 02/15/22 [facility], [address] [address] PCP - General Internal Medicine 02/16/22 documented as of this encounter
--- OUTSIDE RECORDS SUMMARY | 2025-04-17 14:49 | XMS_ITS | Encounter Summary ---
Author Organization [facility] Address [address] [place] [address] Care Team Providers Care Burlap Roll Coverer Name Role Phone Luisito Herrmann MD Primary Care Provider [phone] [facility], Pcp Primary Care Provider Judith martines Encounter Details Date Type Department Care Team Description 01/06/2017 Wellness Visit Medical Records [address] [place] [address] Luisito Herrmann MD [address] [place] [address] Social History Tobacco Use Types Packs/Day Years Used Date Smoking Tobacco: Every Day Cigarettes 0.5 46 Smokeless Tobacco: Never Quit: 05/14/2010 Alcohol Use [...] often do you attend chur ch or denominational services? More than 4 times per year 09/16/2021 Do you belong to any clubs o r organizations such as zoroastrianism groups, unions, fraternal or athletic groups, or [...] on filedocumented in this encounter Care Teams Burlap Roll Coverer Relationship Specialty Start Date End Date Luisito Herrmann MD [address] [place] [address] PCP - General 04/10/04 02/15/22 [facility], Pcp [address] [place] [address] PCP - General Internal Medicine 02/16/22 documented as of this encounter
--- OUTSIDE RECORDS SUMMARY | 2025-04-17 14:49 | XMS_ITS ---
Author Name [facility] Organization Unknown Care Team Organization Name Specialty Phone Email Start Date End Da te [facility] Digna Azevedo Primary Care 07/29/2022 2024 [facility] Alize Primary Care 03/31/2022 2024
--- OUTSIDE RECORDS SUMMARY | 2025-04-17 14:49 | XMS_ITS | Encounter Summary ---
Author Organization [facility] Address [address] [place] [address] Care Team Providers Care Director Of Consumer Affairs Name Role Phone Luisito Herrmann MD Primary Care Provider [phone] [facility], Pcp Primary Care Provider Unavailabl e Reason for Visit * Reason Onset Date Comments Medication 12/25/2021 Encounter Details Date Type Department Care Team Description 12/25/2021 Refill Gastroenterology - [place] [address] [place] [id number] Ramon Saunders MD [address] [place] [address] Medication Social History Tobacco Use Types Packs/Day Years [...] Not asked How often do you attend [facility] or jainism services? More than 4 times per year [...] a long term (including now)? No 09/16/2021 Education Answer Date Recorded What is the highest level of school you have completed or the highest degree you have received? GED or equivalent Sex Assigned at Date Recorded Not on file documented as of this encounter Plan of Treatment Not on file documented as of this encounter Visit Diagnoses Not on filedocumented in this encounter Care Teams Director Of Consumer Affairs Relationship Specialty Start Date End Date Luisito Herrmann MD [address] [place] [address] PCP - General 04/10/04 [facility]15[facility] [address] [place] [address] PCP - General Internal Medicine 02/16/22 documented as of this encounter
--- OUTSIDE RECORDS SUMMARY | 2025-04-17 14:49 | XMS_ITS | Encounter Summary ---
Author Organization [facility] Address [address] [place] [address] Care Team Providers Care Journalism Teacher Name Role Phone Luisito Herrmann MD Primary Care Provider [phone] [facility], Pcp Primary Care Provider Unavailabl e Reason for Visit * Reason Comments E-prescribe Rx Request Encounter Details Date Type Department Care Team Description 05/25/2021 Refill Adult Medicine [address] [phone] Luisito Herrmann MD [address] [place] [id number] E-prescribe Rx Request Social History Tobacco Use [...] Not asked How often do you attend [facility] or religion services? More than 4 times per year 09/16/2021 Do you belong to any clubs o r organizations such as nondenominational groups, unions, fraternal or athletic groups, or [...] place to sleep or slept in a custodial (including now)? No 09/16/2021 Sex Assigned at Date Recorded Not on file documented as of this encounter Miscellaneous Notes * Telephone Encounter - Cata Coello M.A. - 05/26/2021 12:52 PM EST Last office visit 11/06/20 Pt needs to schedule an appt Lab Results Component Value Date CHOL 136 11/11/2020 LDL 61 11/11/2020 HDL 34 11/11/2020 TRIG 207 11/11/2020 SGOT 19 11/11/2020 SGPT 27 11/11/2020 * Telephone Encounter - Stella Bryan - 05/26/2021 9:34 AM EST Patient would like script to be: E-PRESCRIBED/FAXED TO PHARMACY WHEN WAS THE PATIENT'S LAST APPOINTMENT IN ADULT MEDICINE? 11-06-20 WHEN WAS THE LAST TIME THE PATIENT SAW THEIR PCP? Same as above Does patient have an upcoming appointment? No-unable to reach left [facility] to call for appointment due to refill request. Appt due (THE MEDICATION REQUESTED IS ON THE MED [...] N/A Patients current insurance carrier is: Payor: MEDICARE-[employer] / Plan: MEDICARE[employer] / Product Type: MEDICARE [id number] documented in this encounter Plan of Treatment Not on file documented as of this encounter Visit Diagnoses Not on filedocumented in this encounter Care Teams Journalism Teacher Relationship Specialty Start Date End Date Luisito Herrmann MD [address] [place] [address] PCP - General 04/10/04 02/15/22 [facility], [address] [address] PCP - General Internal Medicine 02/16/22 documented as of this encounter
--- OUTSIDE RECORDS SUMMARY | 2025-04-17 14:49 | XMS_ITS | Encounter Summary ---
Author Organization [facility] Address [address] [place] [address] Care Team Providers Care Grainer Machine Name Role Phone Luisito Herrmann MD Primary Care Provider [phone] [facility], Pcp Primary Care Provider Judith martines Encounter Details Date Type Department Care Team Description 01/12/2022 Orders Only Medical Records [address] [place] [address] Ramon Saunders MD [address] [place] [address] [address] [place] [address] Social History Tobacco Use Types Packs/Day Years [...] do you attend [facility] or cheondoism services? More than 4 times per year [...] place to sleep or slept in a half-way (including now)? No 09/16/2021 Education Answer Date Recorded What is the highest level of school you have completed or the highest degree you have received? GED or equivalent Sex Assigned at Date Recorded Not on file documented as of this encounter Plan of Treatment Not on file documented as of this encounter Procedures Procedure Name Priority Date/Time Associated Diagnosis Comments OUTSIDE PATHOLOGY Routine 01/08/2022 documented in this encounter Results * OUTSIDE PATHOLOGY (01/08/2022) Ramon Saunders MD OUTSIDE LAB documented in this encounter Visit Diagnoses Not on filedocumented in this encounter Care Teams Grainer Machine Relationship Specialty Start Date End Date Luisito Herrmann MD [address] [place] [address] PCP - General 04/10/04 02/15/22 [facility], Pcp [address] [place] [address] PCP - General Internal Medicine 02/16/22 documented as of this encounter
--- OUTSIDE RECORDS SUMMARY | 2025-04-17 14:49 | XMS_ITS | Encounter Summary ---
Author Organization [facility] Address [address] [place] [address] Care Team Providers Care Ocean Biologist Name Role Phone Luisito Herrmann MD Primary Care Provider [phone] [facility]ending [facility], Pcp Primary Care Provider Unavailabl e Reason for Visit * Reason Onset Date Comments Faxed Refill 05/02/2018 Encounter Details Date Type Department Care Team Description 05/02/2018 Refill Adult Medicine [address] [phone] Luisito Herrmann MD [address] [place] [address] [phone] Faxed Refill Social History Tobacco Use Types Packs/Day Years [...] Not asked How often do you attend [facility] or pentecostalism services? More than 4 times per year 09/16/2021 Do you belong to any clubs o r organizations such as mormon groups, unions, fraternal or athletic groups, or [...] place to sleep or slept in a fci (including now)? No 09/16/2021 Sex Assigned at Date Recorded Not on file documented as of this encounter Miscellaneous Notes * Telephone Encounter - Chaya David M.A. - 05/04/2018 7:23 AM EST Lab Results Component Value Date CHOL 146 09/02/2017 LDL 57 09/02/2017 HDL 36 09/02/2017 TRIG 265 09/02/2017 SGOT 15 10/16/2015 SGPT 21 10/16/2015 Pending ov with pcp 06/24/18 * Telephone Encounter - Lore Urbina - 05/02/2018 3:21 PM EST Patient would like script to be: E-PRESCRIBED/FAXED TO PHARMACY ?? WHEN WAS THE PATIENT'S LAST APPOINTMENT IN ADULT MEDICINE? 01/03/18 ?? WHEN WAS THE LAST TIME THE PATIENT SAW THEIR PCP? Same as above ?? Does patient have an upcoming appointment? Yes 06/24/18 ?? (THE MEDICATION REQUESTED IS ON THE MED LIST ABOVE) All of the medications requested were on the CURRENT MEDS list ?? Did you check the Pharmacy information above?: YES ?? Patient wants: 90 -day supply ?? Is this a mail order prescription request ? NO ?? If the refill is from a FAXED refill request what is the RX # listed on the fax? N/A ?? Patients current insurance carrier is: Payor: MEDICARE[employer] / Plan: MEDICARE[employer] / Product Type: MEDICARE [id number] ? documented in this encounter Plan of Treatment Not on file documented as of this encounter Visit Diagnoses Not on filedocumented in this encounter Care Teams Ocean Biologist Relationship Specialty Start Date End Date Luisito Herrmann MD [address] [place] [address] PCP - General 04/10/04 02/15/22 [facility], [place] [address] PCP - General Internal Medicine 02/16/22 documented as of this encounter
--- OUTSIDE RECORDS SUMMARY | 2025-04-17 14:49 | XMS_ITS | Encounter Summary ---
Author Organization [facility] Address [address] [place] [address] Care Team Providers Care Prop Drawer Name Role Phone Luisito Herrmann MD Primary Care Provider [phone] [facility], Pcp Primary Care Provider Unavailabl e Reason for Visit * Reason Comments E-prescribe Rx Request Encounter Details Date Type Department Care Team Description 04/04/2016 Refill Adult Medicine [address] [phone] Luisito Herrmann MD [address] [place] [phone] E-prescribe Rx Request Social History Tobacco Use Types Packs/Day Years Used Date Smoking Tobacco: Every Day Cigarettes 0.3 46 Smokeless Tobacco: Never Quit: 05/14/2010 Alcohol [...] Not asked How often do you attend [facility] or christian services? More than 4 times per year 09/16/2021 Do you belong to any clubs o r organizations such as latter-day groups, unions, fraternal or athletic groups, or [...] place to sleep or slept in a nursing home (including now)? No 09/16/2021 Sex Assigned at Date Recorded Not on file documented as of this encounter Miscellaneous Notes * Telephone Encounter - Marta Vogt C.M.A. - 04/06/2016 10:26 AM EST Faxed to pharmacy * Telephone Encounter - Faby Severino M.A. - 04/06/2016 9:05 AM EST Component Value Date CHOL 139 10/16/2015 LDL 52 10/16/2015 HDL 27 10/16/2015 TRIG 302 10/16/2015 SGOT 15 10/16/2015 SGPT 21 10/16/2015 * Telephone Encounter - Fidelia Yates - 04/05/2016 10:50 AM EST Patient would like script to be: E-PRESCRIBED/FAXED TO PHARMACY WHEN WAS THE PATIENT'S LAST APPOINTMENT IN ADULT MEDICINE? 02/28/16 WHEN WAS THE LAST TIME THE PATIENT SAW THEIR PCP? 10/28/15 Does patient have an upcoming appointment? Yes 06/30/16 (THE MEDICATION REQUESTED IS ON THE MED LIST ABOVE) All of the medications requested were on the CURRENT MEDS list Did you check the Pharmacy information above?: YES Patient wants: 90 -day supply Is this a mail order prescription request ? NO Patients current insurance carrier is: Payor: [employer]IC[employer] / Plan: [employer]ICARE[employer] / Product Type: MEDICARE [id number] documented in this encounter Plan of Treatment Not on file documented as of this encounter Visit Diagnoses Not on filedocumented in this encounter Care Teams Prop Drawer Relationship Specialty Start Date End Date Luisito Herrmann MD [address] [place] [address] PCP - General 04/10/04 02/15/22 [facility], Pcp [address] [place] [address] PCP - General Internal Medicine 02/16/22 documented as of this encounter
--- OUTSIDE RECORDS SUMMARY | 2025-04-17 14:49 | XMS_ITS | Encounter Summary ---
Author Organization [facility] Address [address] [place] [address] Care Team Providers Care Rn Team Leader Name Role Phone Luisito Herrmann MD Primary Care Provider [phone] [facility], Pcp Primary Care Provider Unavailabl e Reason for Visit * Reason Comments E-prescribe Rx Request Encounter Details Date Type Department Care Team Description 07/06/2021 Refill Adult Medicine [address] [phone] Luisito Herrmann MD [address] [place] [phone] E-prescribe Rx Request Social History Tobacco Use [...] Not asked How often do you attend [facility] or taoist services? More than 4 times per year [...] place to sleep or slept in a halfway (including now)? No 09/16/2021 Sex Assigned at Date Recorded Not on file documented as of this encounter Miscellaneous Notes * Telephone Encounter - Cata Coello M.A. - 07/08/2021 9:01 AM EST Last office visit 11/06/20 Pt needs to be seen for further refills or 90 day supply Lab Results Component Value Date HGBA1C 7.5 11/11/2020 MALBUR 161.0 11/11/2020 MALBCR 142.4 11/11/2020 CHOL 136 11/11/2020 LDL 61 11/11/2020 HDL 34 11/11/2020 TRIG 207 11/11/2020 GLU 123 11/11/2020 CREAT 0.64 11/11/2020 * Telephone Encounter - Natacha Merchant - 07/08/2021 8:36 AM EST Patient would like script to be: E-PRESCRIBED/FAXED TO PHARMACY WHEN WAS THE PATIENT'S LAST APPOINTMENT IN ADULT MEDICINE? [id number] WHEN WAS THE LAST TIME THE PATIENT SAW THEIR PCP? Same as above Does patient have an upcoming appointment? No-unable to reach left [facility] to call for appointment due to refill request. Appt due now (THE MEDICATION REQUESTED IS ON THE MED [...] N/A Patients current insurance carrier is: Payor: [employer]IC[employer] / Plan: [employer]IC[employer] / Product Type: MEDICARE [id number] documented in this encounter Plan of Treatment Not on file documented as of this encounter Visit Diagnoses Not on filedocumented in this encounter Care Teams Rn Team Leader Relationship Specialty Start Date End Date Luisito Herrmann MD [address] [place] [address] PCP - General 04/10/04 02/15/[address] [address] PCP - General Internal Medicine 02/16/22 documented as of this encounter
--- OUTSIDE RECORDS SUMMARY | 2025-04-17 14:49 | XMS_ITS | Encounter Summary ---
Author Organization [facility] Address [address] [place] [address] Care Team Providers Care Professor Of Environmental Science Name Role Phone Luisito Herrmann MD Primary Care Provider [phone] [facility], Pcp Primary Care Provider Unavailabl e Reason for Visit * Reason Comments E-prescribe Rx Request Encounter Details Date Type Department Care Team Description 01/12/2022 Refill Adult Medicine [facility] [address] [place] [address] [facility] [address] [place] [address] E-prescribe Rx Request Social History Tobacco Use [...] Not asked How often do you attend [facility] or roman catholic services? More than 4 times per year 09/16/2021 Do you belong to any clubs o r organizations such as rastafarian groups, unions, fraternal or athletic groups, or [...] place to sleep or slept in a jail (including now)? No 09/16/2021 Education Answer Date Recorded What is the highest level of school you have completed or the highest degree you have received? GED or equivalent Sex Assigned at Date Recorded Not on file documented as of this encounter Miscellaneous Notes * Telephone Encounter - Cata Coello M.A. - 01/14/2022 8:13 AM EDT Last office visit 09/16/21 Message to pt to schedule an appt sultana. Lab Results Component Value Date HGBA1C 7.3 09/03/2021 MALBUR 127.0 09/03/2021 MALBCR 164.9 09/03/2021 CHOL 136 09/03/2021 LDL TNP 09/03/2021 HDL 28 09/03/2021 TRIG 504 09/03/2021 GLU 265 09/03/2021 CREAT 0.89 09/03/2021 * Telephone Encounter - Chaya David M.A. - 01/12/2022 1:48 PM EDT Lab Results Component Value Date HGBA1C 7.3 09/03/2021 MALBUR 127.0 09/03/2021 MALBCR 164.9 09/03/2021 CHOL 136 09/03/2021 LDL TNP 09/03/2021 HDL 28 09/03/2021 TRIG 504 09/03/2021 GLU 265 09/03/2021 CREAT 0.89 09/03/2021 documented in this encounter Plan of Treatment Not on file documented as of this encounter Visit Diagnoses Not on filedocumented in this encounter Care Teams Professor Of Environmental Science Relationship Specialty Start Date End Date Luisito Herrmann MD [address] [place] [address] PCP - General 04/10/04 02/15/22 [facility], Pcp [address] [place] [address] PCP - General Internal Medicine 02/16/22 documented as of this encounter
== END 2025-04-17 11:35 | disposition home or self-care (01) ==
LOC: HO.HMCH 11:12
PROVIDERS: PCP Internal Medicine; Visit Provider Internal Medicine
DX: E11.65 Type 2 diabetes mellitus with hyperglycemia (principal); E78.5 Hyperlipidemia, unspecified; J44.9 Chronic obstructive pulmonary disease, unspecified; I10 Essential (primary) hypertension; F32.0 Major depressive disorder, single episode, mild

== ENCOUNTER → 2025-04-17 11:12 | Outpatient (BNVA) | payer MEDICARE, OTHER, SELFPAY | PROVIDERS: PCP Internal Medicine; Visit Provider Internal Medicine | DX: E11.65 Type 2 diabetes mellitus with hyperglycemia (principal); E87.5 Hyperkalemia; I10 Essential (primary) hypertension; F32.0 Major depressive disorder, single episode, mild; J44.9 Chronic obstructive pulmonary disease, unspecified; Z13.31 Encounter for screening for depression; Z13.39 Encounter for screening examination for other mental health and behavioral disorders; R91.8 Other nonspecific abnormal finding of lung field; F17.200 Nicotine dependence, unspecified, uncomplicated | CPT/HCPCS: 83036; 96127; 99212 ==

== ENCOUNTER 2025-04-26 11:17 | Outpatient (REF) | payer MEDICARE, OTHER, SELFPAY ==
[2025-04-26 12:19] LABS: Anion Gap 10 (12-20); Blood Urea Nitrogen 11 mg/dL (9-16); Calcium 9.6 mg/dL (8.4-10.2); Carbon Dioxide 26 mmol/L (22-29); Chloride 104 mmol/L (96-108); Estimated Glomerular Filt Rate > 60; Potassium 4.3 mmol/L (3.3-5.1); Sodium 136 mmol/L (135-145)
== END 2025-04-26 11:18 | disposition home or self-care (01) ==
LOC: HO.LAB 11:17
PROVIDERS: PCP Internal Medicine; Visit Provider Internal Medicine Hypertension Specialist
DX: I10 Essential (primary) hypertension (principal)
CPT/HCPCS: 36415; 80048